=== PATIENT | female | born 1965 | race African-American/Black ===

== ENCOUNTER 2017-03-08 18:03 | Emergency (ER) | payer OTHER, MEDICAID ==
[2017-03-08 18:17] VITALS: BP 146/88; BMI 57.5
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
[2017-03-08] MEDS ORDERED: DECADRON INJ IM ONE (18:29)
[2017-03-08] MEDS ORDERED: BENADRYL INJ 50 MG VIAL IM ONE (18:29)
[2017-03-08] MEDS ORDERED: ADRENALINE CHL INJ IM ONE (18:29)
[2017-03-08] MEDS ORDERED: BENADRYL INJ 50 MG VIAL ONE (18:32)
[2017-03-08] MEDS ORDERED: ADRENALINE CHL INJ ONE (18:32)
[2017-03-08] MEDS ORDERED: DECADRON INJ ONE (18:33)
== END 2017-03-08 19:33 | disposition home or self-care (01) ==
LOC: ER 18:11
DX: T78.40XA Allergy, unspecified, initial encounter (principal); T78.1XXA Other adverse food reactions, not elsewhere classified, initial encounter; L29.8 Other pruritus
CPT/HCPCS: 96372; 99282; J0170; J1100; J1200

== ENCOUNTER → 2017-04-04 | Outpatient (CLI) | payer OTHER, MEDICAID ==
[2017-03-08 18:17] VITALS: BP 146/88
[~2017-04-04] MED LIST: NS 100 ML IV 100 ML IV ONE
--- NOTE | 2017-04-04 07:54 | RAD ---
HISTORY: Shortness of breath Study: Chest two-view Comparison: July 27, 2014 Findings: The trachea is midline. The cardiac silhouette is enlarged. No congestive heart failure is noted.. The lungs are clear without focal infiltrate or effusion. The bony thorax is unremarkable. IMPRESSION: 1. Mild cardiomegaly without congestive heart failure 2. Lungs clear Reported By:
--- NOTE | 2017-04-04 07:58 | RAD ---
HISTORY: Right knee pain Study: AP and lateral right knee Comparison: January 26, 2016 Findings: There is severe tricompartmental degenerative joint disease most prominently affecting the medial co mpartment. Once again noted is a large bony fragment which appears to be within the suprapatellar po uch. As suggested on the prior examination this could represent a patellar fracture fragment or disp laced bipartite patella. No lytic or blastic lesions are identified. Joint effusion cannot be exclud ed due to suboptimal positioning on the lateral view. IMPRESSION: Severe tricompartmental degenerative joint disease Large bony fragment in the suprapatellar pouch possibly emanating from the patella and due to an old fracture or displaced bipartite patella. Reported By:
[2017-04-04 08:15] LABS: BASOPHILS # (AUTO) 0.1 X10^3/uL (0.0-0.1); BASOPHILS % (AUTO) 0.8 % (0.2-1.0); EOSINOPHILS # (AUTO) 0.1 x10^3/uL (0.0-0.2); EOSINOPHILS % (AUTO) 1.4 % (0.9-2.9); HEMATOCRIT 35.7 % (36.0-47.0); HEMOGLOBIN 11.4 g/dL (12.0-16.0); LYMPHOCYTES # (AUTO) 3.6 X10^3/uL (1.3-2.9); LYMPHOCYTES % (AUTO) 37.1 % (21.0-51.0); MEAN CORPUSCULAR HEMOGLOBIN 24.4 pg (27.0-34.0); MEAN CORPUSCULAR HGB CONC 31.8 g/dL (33.0-35.0); MEAN CORPUSCULAR VOLUME 76.7 fL (80.0-100.0); MEAN PLATELET VOLUME 8.4 fL (7.4-11.0); MONOCYTES # (AUTO) 0.6 x10^3/uL (0.3-0.8); MONOCYTES % (AUTO) 6.7 % (0.0-13.0); NEUTROPHILS # (AUTO) 5.2 x10^3/uL (2.2-4.8); PLATELET COUNT 291 X10^3/uL (150.0-450.0); RED BLOOD COUNT 4.66 X10^6/uL (3.5-5.4); RED CELL DISTRIBUTION WIDTH 20.2 % (11.6-16.5); WHITE BLOOD COUNT 9.7 X10^3/uL (3.6-10.0)
[2017-04-04 08:29] LABS: ALANINE AMINOTRANSFERASE 18 Units/L (12-78); ALKALINE PHOSPHATASE 61 Units/L (46-116); ASPARTATE AMINO TRANSFERASE 13 Units/L (15-37); BLOOD UREA NITROGEN 8 mg/dL (7-18); CALCIUM 8.7 mg/dL (8.5-10.1); CARBON DIOXIDE 28.8 mmol/L (21-32); CHLORIDE 103 mmol/L (98-107); CHOL/HDL RATIO 2.7 (0.0-5.0); CHOLESTEROL 173 mg/dL (0-200); COR CA(FOR HYPOALB) 9.5 mg/dL (8.5-10.1); CREATININE 0.85 mg/dL (0.55-1.02); FREE T4 (FREE THYROXINE) 1.16 ng/dL (0.76-1.46); GLUCOSE 98 mg/dL (65-99); HDL CHOLESTEROL 63 mg/dL (40-60); SODIUM 140 mmol/L (136-145); TOTAL PROTEIN 7.9 g/dL (6.4-8.2); TRIGLYCERIDES 62 mg/dL (0-150); TSH (3RD GENERATION) 2.002 uIU/mL (0.358-3.74); eGFR BLACK RACES > 60 (>60); eGFR NON BLACK RACES > 60 (>60)
[2017-04-04 08:41] LABS: IRON 46 ug/dL (50-175); TRANSFERRIN 234 mg/dL (202-364)
[2017-04-04 08:57] LABS: D DIMER 1220 ng/mL (0-400)
[2017-04-04 09:01] LABS: ANISOCYTOSIS 1+; PLATELET MORPHOLOGY COMMENT NORMAL (NORMAL)
--- NOTE | 2017-04-04 12:54 | CT ---
HISTORY: Shortness of breath with elevated D-dimer. Study: CT chest with contrast Comparison: Chest x-ray dated same day. Technique: Multiple axial images of the chest were obtained from the thoracic inlet to the upper abd omen after the administration of IV contrast. Dose reduction techniques including Automated Exposur e Control (AEC) and adjustment of mA and kV were utilized. Findings: Study severely limited secondary to timing of bolus and inadequate opacification of the pulmonary ar teries. The mediastinum does not demonstrate significant pathological lymphadenopathy. There is no paracard ial effusion observed. The thoracic aorta is normal in its contour without evidence for aneurysmal dilatation. Limited evaluation of the pulmonary arteries. However, no pulmonary emboli are seen wit hin the main pulmonary arteries. Bibasilar scarring versus atelectasis. Evaluation of the lung parenchyma fails to demonstrate focal consolidation or effusion. No pulmonary nodule or mass can be identified. The bony thorax is unrem arkable in its appearance. The visualized portions of the upper abdomen are grossly unremarkable. IMPRESSION: 1. Severely limited study secondary to inadequate opacification of the pulmonary arteries. However, no obvious emboli are seen within the main pulmonary arteries. 2. Remaining exam is unremarkable. Reported By:
== END ==
LOC: RAD 07:21
PROVIDERS: ATTEND Specialist
DX: M25.561 Pain in right knee (principal); I10 Essential (primary) hypertension; R06.09 Other forms of dyspnea; R06.02 Shortness of breath; R53.83 Other fatigue; D64.9 Anemia, unspecified; R79.1 Abnormal coagulation profile; G47.33 Obstructive sleep apnea (adult) (pediatric); M17.11 Unilateral primary osteoarthritis, right knee
CPT/HCPCS: 36415; 71020; 71275; 73560; 80053; 80061; 82607; 82728; 82746; 83540; 84439; 84443; 84466; 85025; 85378; 93005; 93010; A4222

== ENCOUNTER 2017-04-07 14:40 | Observation (INO) | payer OTHER, MEDICAID ==
--- NOTE | 2017-04-07 15:38 | DR.H&P ---
H&P - History & Physical for Day of: H&P Date: 04/07/17 - Chief Complaint Chief Complaint: SOB, LOWER EXTREMITY SWELLING - Allergies Allergies/Adverse Reactions: Allergies Allergy/AdvReac Type Severity Reaction Status Date / Time MS Ibuprofen [From Motrin] Allergy Unknown Verified 06/08/14 14:54 MS Meloxicam [From Mobic] Allergy Unknown Verified 06/08/14 14:54 - Past Medical History Past Medical History: Anxiety, Arthritis, Asthma, Depression, Dyslipidemia, GERD , Hypertension Additional Medical History: FREQ UTI'S, HX OF ESOPHAGITIS W/DILATION OF ESOPHAGUS - Past Surgical History Surgical History: , Cholecystectomy, Joint Replacement - Family History Family Medical History: Diabetes Mellitus, Cancer, Hypertension - Social History Does patient currently use any type of tobacco product: No Have you used tobacco products in the last 12 months: No Type of Tobacco Use: None Does any household member use tobacco: No Alcohol Use: None Drug Use: None - Review of Systems Constitutional: Malaise Eyes: No Symptoms Reported ENT: No Symptoms Reported Respiratory: Shortness of Breath, SOB with Excertion Cardiovascular: Edema Gastrointestinal: No Symptoms Reported Genitourinary: No Symptoms Reported Musculoskeletal: Back Pain, Leg Pain Skin: No Symptoms Reported Neurological: No Symptoms Reported - Physical Exam Vital Signs: Temperature 97.7 F Pulse Rate [Left Brachial] 89 Respiratory Rate 20 Blood Pressure [Right Arm] 153/86 Blood Pressure [Left Arm] 174/90 Blood Pressure 146/88 O2 Sat by Pulse Oximetry 96 Oriented: Normal Eyes: Normal Ear: Normal Nose: Normal Throat: Normal Respiratory: Wheezes Throughout, RLL Diminished, LLL Diminished Cardiovascular: Edema (+3 EDEMA LLE, +2 RLE) Skin: Normal Musculoskeletal: Knee, Back:Thoracic, Back:Lumbar Psychiatric: Anxiety Speech Pattern: Clear, Appropriate - Assessment/Plan (1) SOB (shortness of breath) Status: Acute Plan: ADMIT, CT SCAN LUNGS. EKG, CARDIAC ENZYMES, BP AND LIPID CONTROL. ABG ON ADMISSION, RESP CONSULT. LOVENOX PROPHALAXIS, REPEAT AM LABS (2) Lower extremity edema Status: Acute Plan: VENOUS US R/O DVT (3) GERD (gastroesophageal reflux disease) Qualifiers: Esophagitis presence: E Status: Chronic Plan: PPI (4) Hypertension Qualifiers: Hypertension type: H Status: Chronic
--- NOTE | 2017-04-07 15:46 | RAD ---
HISTORY: Shortness of breath. Study: Portable chest. Comparison: CT chest and PET chest x-ray dated April 04, 2017. Findings: The trachea is midline. The cardiac silhouette is mildly enlarged but unchanged.. The lungs are cl ear without focal infiltrate or effusion. The bony thorax is unremarkable. IMPRESSION: 1. No acute cardiopulmonary disease. Reported By:
[2017-04-07 15:47] LABS: ABG BASE EXCESS 7.3 mmol/L (-2.0-2.0)
[2017-04-07 15:49] LABS: ABG ALLEN TEST POS; ABG HCO3 33.1 mmol/L (22-26)
[2017-04-07 16:03] LABS: BASOPHILS # (AUTO) 0.1 X10^3/uL (0.0-0.1); BASOPHILS % (AUTO) 1.3 % (0.2-1.0); EOSINOPHILS # (AUTO) 0.1 x10^3/uL (0.0-0.2); EOSINOPHILS % (AUTO) 1.3 % (0.9-2.9); HEMATOCRIT 34.6 % (36.0-47.0); HEMOGLOBIN 10.9 g/dL (12.0-16.0); LYMPHOCYTES % (AUTO) 31.9 % (21.0-51.0); MEAN CORPUSCULAR HEMOGLOBIN 24.2 pg (27.0-34.0); MEAN CORPUSCULAR HGB CONC 31.6 g/dL (33.0-35.0); MEAN CORPUSCULAR VOLUME 76.5 fL (80.0-100.0); MEAN PLATELET VOLUME 8.2 fL (7.4-11.0); MONOCYTES # (AUTO) 0.6 x10^3/uL (0.3-0.8); MONOCYTES % (AUTO) 6.7 % (0.0-13.0); NEUTROPHILS # (AUTO) 5.6 x10^3/uL (2.2-4.8); NEUTROPHILS % (AUTO) 58.8 % (42.0-75.0); PLATELET COUNT 339 X10^3/uL (150.0-450.0); RED BLOOD COUNT 4.52 X10^6/uL (3.5-5.4); WHITE BLOOD COUNT 9.4 X10^3/uL (3.6-10.0)
[2017-04-07 16:20] LABS: ANISOCYTOSIS 1+; HYPOCHROMASIA SLIGHT; PLATELET MORPHOLOGY COMMENT NORMAL (NORMAL); TARGET CELLS SLIGHT
[2017-04-07 16:22] LABS: BLOOD UREA NITROGEN 18 mg/dL (7-18); CALCIUM 8.6 mg/dL (8.5-10.1); CARBON DIOXIDE 29.9 mmol/L (21-32); CHLORIDE 101 mmol/L (98-107); CREATININE 0.94 mg/dL (0.55-1.02); GLUCOSE 98 mg/dL (65-99); SODIUM 138 mmol/L (136-145); TROPONIN I < 0.02 ng/mL (0-1.5); eGFR BLACK RACES > 60 (>60); eGFR NON BLACK RACES > 60 (>60)
[2017-04-07 16:27] LABS: ALANINE AMINOTRANSFERASE 17 Units/L (12-78); ALKALINE PHOSPHATASE 59 Units/L (46-116); ASPARTATE AMINO TRANSFERASE 11 Units/L (15-37); CKMB % 0.7 % (<4); COR CA(FOR HYPOALB) 9.4 mg/dL (8.5-10.1); CREATINE KINASE 135 Units/L (26-192); CREATINE KINASE MB < 1.0 ng/mL (0-4.0); MAGNESIUM 1.6 mg/dL (1.7-2.9); TOTAL PROTEIN 7.8 g/dL (6.4-8.2)
--- NOTE | 2017-04-07 16:40 | VAS ---
HISTORY: Dyspnea with left leg pain and edema Study: Left lower extremity venous Doppler Comparison: None TECHNIQUE: Multiple griffith scale as well as spectral and color flow Doppler images of the deep venous system were obtained of the left lower extremity. FINDINGS: The deep venous system of the left lower extremity was evaluated from the level of the common femora l vein through the popliteal vein. Normal color flow and augmentation can be observed. In addition , normal compression is seen throughout the deep venous system. IMPRESSION: Negative for DVT. Reported By:
[2017-04-07] MEDS: PROTONIX INJ 40 MG VIAL IVP SCH (16:53)
[2017-04-07] MEDS ORDERED: ULTRAM PO PRN (19:53)
[2017-04-07] MEDS ORDERED: PROVENTIL NEB TX 0.083% 2.5MG/ 3ML NEB PRN (20:01)
[2017-04-07 21:51] LABS: BILIRUBIN,URINE NEGATIVE (NEGATIVE); BLOOD/HEMOGLOBIN,URINE NEGATIVE (NEGATIVE); GLUCOSE, URINE NEGATIVE (NEGATIVE); KETONES,URINE NEGATIVE (NEGATIVE); LEUKOCYTE ESTERASE ,URINE 2+ (NEGATIVE); NITRITES,URINE NEGATIVE (NEGATIVE); PROTEIN,URINE NEGATIVE (NEGATIVE); UROBILINOGEN,URINE NORMAL (NORMAL)
[2017-04-07 22:02] LABS: APPEARANCE,URINE CLEAR (CLEAR); BACTERIA,URINE TRACE /HPF (NEGATIVE); COLOR,URINE YELLOW (YELLOW); RBC,URINE 0-1 /HPF (NEGATIVE); SQUAMOUS EPITHELIAL CELL,UR MODERATE /HPF (NEGATIVE)
[2017-04-08 05:04] LABS: BASOPHILS % (AUTO) 0.4 % (0.2-1.0); EOSINOPHILS # (AUTO) 0.1 x10^3/uL (0.0-0.2); EOSINOPHILS % (AUTO) 1.2 % (0.9-2.9); HEMATOCRIT 33.9 % (36.0-47.0); HEMOGLOBIN 10.8 g/dL (12.0-16.0); LYMPHOCYTES # (AUTO) 3.2 X10^3/uL (1.3-2.9); LYMPHOCYTES % (AUTO) 35.3 % (21.0-51.0); MEAN CORPUSCULAR HEMOGLOBIN 24.5 pg (27.0-34.0); MEAN CORPUSCULAR HGB CONC 31.8 g/dL (33.0-35.0); MEAN PLATELET VOLUME 8.6 fL (7.4-11.0); MONOCYTES # (AUTO) 0.7 x10^3/uL (0.3-0.8); NEUTROPHILS % (AUTO) 55.1 % (42.0-75.0); PLATELET COUNT 280 X10^3/uL (150.0-450.0); RED CELL DISTRIBUTION WIDTH 20.2 % (11.6-16.5); WHITE BLOOD COUNT 9.1 X10^3/uL (3.6-10.0)
[2017-04-08 05:14] LABS: ALANINE AMINOTRANSFERASE 17 Units/L (12-78); ALBUMIN 2.8 g/dL (3.4-5.0); ALKALINE PHOSPHATASE 57 Units/L (46-116); ASPARTATE AMINO TRANSFERASE 10 Units/L (15-37); BLOOD UREA NITROGEN 14 mg/dL (7-18); CALCIUM 8.5 mg/dL (8.5-10.1); CARBON DIOXIDE 30.6 mmol/L (21-32); CHLORIDE 102 mmol/L (98-107); COR CA(FOR HYPOALB) 9.5 mg/dL (8.5-10.1); CREATININE 0.73 mg/dL (0.55-1.02); GLUCOSE 84 mg/dL (65-99); SODIUM 140 mmol/L (136-145); TOTAL PROTEIN 7.3 g/dL (6.4-8.2); eGFR BLACK RACES > 60 (>60); eGFR NON BLACK RACES > 60 (>60)
[2017-04-08 05:58] LABS: ANISOCYTOSIS 1+; HYPOCHROMASIA SLIGHT; MICROCYTOSIS SLIGHT; PLATELET MORPHOLOGY COMMENT NORMAL (NORMAL)
[2017-04-08] MEDS: PROTONIX INJ 40 MG VIAL IVP SCH (08:52)
[2017-04-08] MEDS ORDERED: LOVENOX INJ 40 MG SYR SC SCH (09:00)
[2017-04-08] MEDS ORDERED: NS 100 ML IV 100 ML IV ONE (09:06)
--- NOTE | 2017-04-08 10:29 | CT ---
HISTORY: Shortness of breath Study: CTA chest for pulmonary embolus Comparison: April 04, 2017 Technique: Axial post-contrast images with coronal and sagittal reformats. 3 dimensional maximum int ensity projection images were obtained in evaluated. Dose reduction procedures were used with MA/kv adjusted for body size. Findings: The examination is indeterminate for acute pulmonary thromboembolic disease due to suboptimal bolus timing. Examination of the mediastinum demonstrated no evidence for mediastinal masses, lymphadenopa thy, or hilar lymphadenopathy. No pleural effusions are identified. No chest wall or axillary abnorm ality is identified. Those portions of the upper abdominal organs visualized were within normal limi ts to the limits of resolution in this patient. Examination of the lung [place] demonstrated no signi ficant nodules, alveolar infiltrates, masses, peribronchial thickening, or bronchiectasis. There is a focus of subsegmental atelectasis in the right lung base. IMPRESSION: Indeterminate examination for the determination of acute pulmonary thromboembolic disease due to sub optimal bolus timing. Lungs clear with the exception of a focus of subsegmental atelectasis in the right lung base. Reported By:
[2017-04-08 12:54] VITALS: BMI 65.2
[2017-04-08 16:38] VITALS: BP 131/85
== END 2017-04-08 17:00 | disposition home or self-care (01) ==
LOC: MED/SURG 14:40
PROVIDERS: ADMIT Internal Medicine; ATTEND Internal Medicine
DX: R06.02 Shortness of breath (principal); R60.0 Localized edema; E78.2 Mixed hyperlipidemia; K21.9 Gastro-esophageal reflux disease without esophagitis; I10 Essential (primary) hypertension; R79.1 Abnormal coagulation profile; M79.605 Pain in left leg; D64.89 Other specified anemias
CPT/HCPCS: 36415; 36600; 71010; 71275; 80053; 81001; 82550; 82553; 82803; 83735; 84484; 85025; 93005; 93010; 93971; 94760; A4222; C9113; G0378; J1650; J7613

== ENCOUNTER 2017-08-04 14:21 | Emergency (ER) | payer OTHER, MEDICAID ==
[2017-08-04 14:28] VITALS: BP 133/79; BMI 60.4
--- NOTE | 2017-08-04 15:15 | ED.ABDFE ---
HPI - Time seen Time seen: 15:15 - PCP Primary Care Physician: MELVA RUSH - Complaint Chief Complaint:: PT C/O PAIN SHE URINATES AND PAIN IN THE BOTTOM OF HER STOMACH ... THAT HAS BEEN GOING ON FOR 2 DAYS .. - Source History Provided: Patient - Mode of arrival Mode of Arrival: Ambulatory - Timing Onset of Chief Complaint: 08/02/17 PMH - PMH Past Medical History: Yes Past Medical History: Anxiety, Arthritis, Asthma, Depression, Dyslipidemia, GERD , Hypertension Past Surgical History: Yes Surgical History: , Cholecystectomy, Joint Replacement - Family History History of Family Medical Conditions: Yes Family Medical History: Diabetes Mellitus, Cancer, Hypertension - Social History Does patient currently use any type of tobacco product: No Have you used tobacco products in the last 12 months: No Type of Tobacco Use: None Does any household member use tobacco: No Alcohol Use: None Do you use any recreational Drugs:: No Lives With: Family Lives Where: Home - infectious screening In the last 2 months have you had wt loss of >10#?: NO Have you had fever, night sweats or hemotysis?: No Have you traveled outside the country in the last 6 months?: No Isolation: Standard ROS - Review of Systems Eyes: No Symptoms Reported ENTM: No Symptoms Reported Respiratoy: No Symptoms Reported Cardiovascular: No Symptoms Reported Gastrointestinal/Abdominal: No Symptoms Reported Genitourinary: No Symptoms Reported Neurological: No Symptoms Reported Musculoskeletal: No Symptoms Reported Integumentary: No Symptoms Reported Hematologic/Lymphatic: No Symptoms Reported Endocrine: No Symptoms Reported Psychiatric: No Symptoms Reported All Other Systems: Reviewed and Negative PE - Vital Signs Vitals: Temperature 97.9 F Pulse Rate 117 Respiratory Rate 18 Blood Pressure [Right Arm] 131/85 Blood Pressure [Left Arm] 174/90 Blood Pressure 133/79 O2 Sat by Pulse Oximetry 95 - General General Appearance: Alert, Anxious - Head Head Exam: Normal Inspection, Atraumatic - Eyes Eye exam: Normal Appearance, PERRL - ENT ENT Exam: Normal Exam - Neck Neck Exam: Normal Inspection, Full ROM - Chest Chest Inspection: Normal Inspection - Respiratory Respiratory Exam: Normal Lung Sounds Bilat Respiratory Exam: Bilateral Clear to Auscultation - Cardiovascular Cardiovascular Exam: Regular Rate, Normal Rhythm - Abdominal Exam Abdominal Exam: Normal Inspection, Normal Bowel Sounds Abdominal Tenderness: negative: RUQ, RLQ, LUQ, LLQ, Epigastrium, Suprapubic, Diffuse, Mild, Moderate, Severe, Other - Back Back Exam: Normal Inspection - Extremeties Extremities Exam: Normal Inspection, Full ROM - External Exam: Female: Normal External Exam : Speculum Exam (Female): Normal Speculum Exam : Bimanual Exam (female): Deferred - Neurologic Neurological Exam: Alert, Oriented X3, CN II-XII Intact - Psychiatric Psychiatric Exam: Normal Affect - Skin Skin Exam: Warm, Dry, Intact Course - Reevaluation 1st: Improved ROR - Labs Reviewed Laboratory Results Reviewed?: Yes (urine: nitrite +,Luek 3+, WBC TNTC) Laboratory: Specimen Type Clean catch urine 08/04/17 15:04 Urine Color Yellow (YELLOW) 08/04/17 15:04 Urine Appearance Cloudy (CLEAR) 08/04/17 15:04 Urine pH 6.0 (5.0 - 8.0) 08/04/17 15:04 Ur Specific [place] 1.020 (1.000-1.030) 08/04/17 15:04 Urine Protein 4+ (NEGATIVE) 08/04/17 15:04 Urine Glucose (UA) Negative (NEGATIVE) 08/04/17 15:04 Urine Ketones Negative (NEGATIVE) 08/04/17 15:04 Urine Occult Blood 5+ (NEGATIVE) 08/04/17 15:04 Urine Nitrite Positive (NEGATIVE) 08/04/17 15:04 Urine Bilirubin Negative (NEGATIVE) 08/04/17 15:04 Urine Urobilinogen Normal (NORMAL) 08/04/17 15:04 Ur Leukocyte Esterase 3+ (NEGATIVE) 08/04/17 15:04 Urine RBC 10-15 /HPF (NEGATIVE) 08/04/17 15:04 Urine WBC Tntc /HPF (NEGATIVE) 08/04/17 15:04 Ur Squamous Epith Cells Few /HPF (NEGATIVE) 08/04/17 15:04 Urine Bacteria 4+ /HPF (NEGATIVE) 08/04/17 15:04 Ur Culture Indicated? Yes/culture set up 08/04/17 15:04 - Diagnosis Discharge Problem: UTI (urinary tract infection) Qualifiers: Urinary tract infection type: urethritis Qualified Code(s): N34.2 - Other urethritis - Discharge Plan Condition: Stable - Follow ups/Referrals Follow ups/Referrals: NFD,None [Primary Care Provider] - 3 days - Instructions
[2017-08-04] MEDS ORDERED: DEMEROL INJ IM ONE (15:17)
[2017-08-04 15:18] LABS: BILIRUBIN,URINE NEGATIVE (NEGATIVE); BLOOD/HEMOGLOBIN,URINE 5+ (NEGATIVE); GLUCOSE, URINE NEGATIVE (NEGATIVE); KETONES,URINE NEGATIVE (NEGATIVE); LEUKOCYTE ESTERASE ,URINE 3+ (NEGATIVE); NITRITES,URINE POSITIVE (NEGATIVE); PROTEIN,URINE 4+ (NEGATIVE); UROBILINOGEN,URINE NORMAL (NORMAL)
[2017-08-04] MEDS ORDERED: DEMEROL INJ ONE (15:20)
[2017-08-04 15:31] LABS: APPEARANCE,URINE CLOUDY (CLEAR); BACTERIA,URINE 4+ /HPF (NEGATIVE); COLOR,URINE YELLOW (YELLOW); SQUAMOUS EPITHELIAL CELL,UR FEW /HPF (NEGATIVE)
[2017-08-04] MEDS ORDERED: ROCEPHIN VIAL 1 GM 1 GM in NS 50 ML IV + SPIKE MINIBAG* 50 ML IV SCH (15:45)
[2017-08-04] MEDS ORDERED: XYLOCAINE 1 % (PLAIN) ONE (15:48)
[2017-08-04] MEDS ORDERED: ROCEPHIN VIAL 1 GM ONE (15:48)
[2017-08-04] MEDS ORDERED: ROCEPHIN VIAL 1 GM 1 GM in NS 50 ML IV + SPIKE MINIBAG* 50 ML IV ONE (16:07)
[2017-08-04] MEDS ORDERED: ROCEPHIN VIAL 1 GM IM ONE (16:09)
== END 2017-08-04 16:10 | disposition home or self-care (01) ==
LOC: ER 14:43
DX: N34.2 Other urethritis (principal); B96.29 Other Escherichia coli [E. coli] as the cause of diseases classified elsewhere
CPT/HCPCS: 81001; 87086; 87088; 87186; 96372; 99282; J0696; J2001; J2175

== ENCOUNTER 2018-02-07 23:35 | Observation (INO) | payer OTHER, MEDICAID ==
[2018-02-07] MEDS ORDERED: DUONEB 0.5 MG/3 MG ONE (23:46)
[2018-02-07] MEDS ORDERED: DUONEB 0.5 MG/3 MG NEB ONE (23:53)
[2018-02-07] MEDS ORDERED: SOLU-Medrol 125 MG VIAL IVP ONE (23:53)
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
[2018-02-08] MEDS ORDERED: SOLU-Medrol 125 MG VIAL ONE (00:14)
[2018-02-08 00:20] LABS: BASOPHILS % (AUTO) 0.3 % (0.2-1.0); EOSINOPHILS # (AUTO) 0.1 x10^3/uL (0.0-0.2); EOSINOPHILS % (AUTO) 1.6 % (0.9-2.9); HEMATOCRIT 32.7 % (36.0-47.0); HEMOGLOBIN 10.4 g/dL (12.0-16.0); LYMPHOCYTES # (AUTO) 2.6 X10^3/uL (1.3-2.9); LYMPHOCYTES % (AUTO) 27.3 % (21.0-51.0); MEAN CORPUSCULAR HEMOGLOBIN 24.9 pg (27.0-34.0); MEAN CORPUSCULAR HGB CONC 31.7 g/dL (33.0-35.0); MEAN CORPUSCULAR VOLUME 78.4 fL (80.0-100.0); MEAN PLATELET VOLUME 7.7 fL (7.4-11.0); MONOCYTES # (AUTO) 0.5 x10^3/uL (0.3-0.8); MONOCYTES % (AUTO) 5.7 % (0.0-13.0); NEUTROPHILS # (AUTO) 6.2 x10^3/uL (2.2-4.8); NEUTROPHILS % (AUTO) 65.1 % (42.0-75.0); PLATELET COUNT 306 X10^3/uL (150.0-450.0); RED BLOOD COUNT 4.16 X10^6/uL (3.5-5.4); RED CELL DISTRIBUTION WIDTH 20.5 % (11.6-16.5); WHITE BLOOD COUNT 9.5 X10^3/uL (3.6-10.0)
[2018-02-08 00:23] LABS: ABG ALLEN TEST POS; ABG BASE EXCESS 4.3 mmol/L (-2.0-2.0); ABG HCO3 29.8 mmol/L (22-26); FRACTIONATED INSPIRED OXYGEN 21
[2018-02-08 00:32] LABS: BLOOD UREA NITROGEN 13 mg/dL (7-18); CALCIUM 8.2 mg/dL (8.5-10.1); CARBON DIOXIDE 30.5 mmol/L (21-32); CHLORIDE 104 mmol/L (98-107); COR NA(FOR HYPERGLY) 141 mmol/L (136-145); CREATININE 0.93 mg/dL (0.55-1.02); SODIUM 140 mmol/L (136-145); TROPONIN I < 0.02 ng/mL (0-1.5); eGFR BLACK RACES > 60 (>60); eGFR NON BLACK RACES > 60 (>60)
[2018-02-08 00:36] LABS: ALANINE AMINOTRANSFERASE 26 Units/L (12-78); ALBUMIN 2.9 g/dL (3.4-5.0); ALKALINE PHOSPHATASE 77 Units/L (46-116); ASPARTATE AMINO TRANSFERASE 13 Units/L (15-37); COR CA(FOR HYPOALB) 9.1 mg/dL (8.5-10.1); CREATINE KINASE 145 Units/L (26-192); CREATINE KINASE MB 1.5 ng/mL (0-4.0); MAGNESIUM 1.7 mg/dL (1.7-2.9); TOTAL PROTEIN 8.4 g/dL (6.4-8.2)
[2018-02-08 00:42] LABS: ANISOCYTOSIS 1+; HYPOCHROMASIA SLIGHT; PLATELET MORPHOLOGY COMMENT NORMAL (NORMAL)
[2018-02-08] MEDS ORDERED: CATAPRES TAB 0.2 MG PO ONE (01:20)
[2018-02-08] MEDS ORDERED: CATAPRES TAB 0.2 MG ONE (01:21)
--- NOTE | 2018-02-08 02:09 | RAD ---
Chest, AP portable Indication: Shortness of breath Comparison: 04/07/2017 Findings: Evaluation is limited by patient body habitus. There is increased reticular prominence thro ughout both lungs. No focal dense infiltrate or large pleural effusion is observed. The cardiac silho uette is unremarkable. Impression: Significantly limited study with suggestion of diffusely increased interstitial prominence, which cou ld reflect edema or atypical infection. correlation recommended. Consider two-view chest, if indicate d. Reported By:
[2018-02-08 02:38] LABS: CREATINE KINASE 155 Units/L (26-192); CREATINE KINASE MB 1.5 ng/mL (0-4.0); TROPONIN I < 0.02 ng/mL (0-1.5)
[2018-02-08] MEDS: DUONEB 0.5 MG/3 MG NEB SCH ×5 (04:00→21:14)
[2018-02-08 06:26] LABS: BASOPHILS % (AUTO) 0.3 % (0.2-1.0); HEMATOCRIT 33.7 % (36.0-47.0); HEMOGLOBIN 10.8 g/dL (12.0-16.0); MEAN CORPUSCULAR HGB CONC 32.1 g/dL (33.0-35.0); MEAN PLATELET VOLUME 8.5 fL (7.4-11.0); WHITE BLOOD COUNT 10.6 X10^3/uL (3.6-10.0)
[2018-02-08 06:34] LABS: LYMPHOCYTES # (AUTO) 0.9 X10^3/uL (1.3-2.9); LYMPHOCYTES % (AUTO) 8.6 % (21.0-51.0); MEAN CORPUSCULAR HEMOGLOBIN 24.8 pg (27.0-34.0); MEAN CORPUSCULAR VOLUME 77.3 fL (80.0-100.0); MONOCYTES # (AUTO) 0.2 x10^3/uL (0.3-0.8); MONOCYTES % (AUTO) 1.4 % (0.0-13.0); NEUTROPHILS # (AUTO) 9.5 x10^3/uL (2.2-4.8); NEUTROPHILS % (AUTO) 89.7 % (42.0-75.0); PLATELET COUNT 326 X10^3/uL (150.0-450.0); RED BLOOD COUNT 4.36 X10^6/uL (3.5-5.4); RED CELL DISTRIBUTION WIDTH 20.6 % (11.6-16.5)
[2018-02-08 06:39] LABS: BLOOD UREA NITROGEN 11 mg/dL (7-18); CALCIUM 8.5 mg/dL (8.5-10.1); CARBON DIOXIDE 27.8 mmol/L (21-32); CHLORIDE 102 mmol/L (98-107); COR NA(FOR HYPERGLY) 140 mmol/L (136-145); CREATININE 0.86 mg/dL (0.55-1.02); SODIUM 139 mmol/L (136-145); eGFR BLACK RACES > 60 (>60); eGFR NON BLACK RACES > 60 (>60)
[2018-02-08 06:59] LABS: ANISOCYTOSIS 1+; GIANT PLATELET FEW; PLATELET MORPHOLOGY COMMENT NORMAL (NORMAL)
[2018-02-08] MEDS ORDERED: PATIENT'S HOME MEDICATION (Amlodipine Besylate [Amlodipine Besylate] 10 MG) PO SCH (09:00)
[2018-02-08] MEDS ORDERED: PATIENT'S HOME MEDICATION (Potassium Chloride [Potassium Chloride] 10 MEQ) PO SCH (09:00)
[2018-02-08] MEDS ORDERED: NS 250 ML IV 250 ML IV ONE (09:47)
[2018-02-08] MEDS: ZITHROMAX INJ 500 MG VIAL 250 MG in NS 250 ML IV 250 ML IV SCH (09:53)
[2018-02-08] MEDS: HYZAAR 50/12.5 MG PO SCH (09:54)
[2018-02-08] MEDS: NORVASC TAB 10 MG PO SCH (09:54)
[2018-02-08] MEDS: MICRO K EXTEN CAP 10 MEQ PO SCH (09:55)
[2018-02-08] MEDS: ZOLOFT PO SCH (09:55)
[2018-02-08 10:04] LABS: CKMB % 1.1 % (<4); CREATINE KINASE 142 Units/L (26-192); CREATINE KINASE MB 1.5 ng/mL (0-4.0); TROPONIN I < 0.02 ng/mL (0-1.5)
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
[2018-02-08] MEDS: NORCO 10/325 TAB PO PRN ×2 (14:03→23:07)
[2018-02-08] MEDS: ASPIRIN PO SCH (14:03)
[2018-02-08] MEDS: LOVENOX INJ 40 MG SYR SC SCH (14:04)
[2018-02-08] MEDS: SINEquan PO SCH ×2 (14:07→21:38)
[2018-02-08 14:57] LABS: CKMB % 1.1 % (<4); CREATINE KINASE 132 Units/L (26-192); CREATINE KINASE MB 1.4 ng/mL (0-4.0); TROPONIN I < 0.02 ng/mL (0-1.5)
[2018-02-08] MEDS: LASIX IVP SCH (20:24)
[2018-02-09] MEDS: DUONEB 0.5 MG/3 MG NEB SCH ×6 (00:59→21:15)
[2018-02-09] MEDS: NORCO 10/325 TAB PO PRN (04:49)
[2018-02-09 06:01] VITALS: BMI 67.3
[2018-02-09 06:15] LABS: BASOPHILS % (AUTO) 0.3 % (0.2-1.0); EOSINOPHILS % (AUTO) 0.2 % (0.9-2.9); HEMATOCRIT 30.8 % (36.0-47.0); HEMOGLOBIN 9.8 g/dL (12.0-16.0); LYMPHOCYTES # (AUTO) 2.4 X10^3/uL (1.3-2.9); LYMPHOCYTES % (AUTO) 21.6 % (21.0-51.0); MEAN CORPUSCULAR HEMOGLOBIN 24.5 pg (27.0-34.0); MEAN CORPUSCULAR HGB CONC 31.8 g/dL (33.0-35.0); MEAN PLATELET VOLUME 8.2 fL (7.4-11.0); MONOCYTES # (AUTO) 0.8 x10^3/uL (0.3-0.8); NEUTROPHILS % (AUTO) 70.9 % (42.0-75.0); PLATELET COUNT 310 X10^3/uL (150.0-450.0); RED CELL DISTRIBUTION WIDTH 20.3 % (11.6-16.5); WHITE BLOOD COUNT 11.2 X10^3/uL (3.6-10.0)
[2018-02-09 06:34] LABS: PLATELET MORPHOLOGY COMMENT NORMAL (NORMAL)
--- NOTE | 2018-02-09 06:34 | RAD ---
HISTORY: Shortness of breath Study: Chest AP portable Comparison: 02/08/2018 Findings: The heart is upper limits normal in size. No definite acute alveolar infiltrates or pleural effusions are identified. The interstitium is no longer prominent. The bony thorax is unremarkable. IMPRESSION: No significant abnormality identified Reported By:
[2018-02-09 06:35] LABS: ANISOCYTOSIS 1+; HYPOCHROMASIA SLIGHT
[2018-02-09 06:38] LABS: ALANINE AMINOTRANSFERASE 35 Units/L (12-78); ALKALINE PHOSPHATASE 73 Units/L (46-116); ASPARTATE AMINO TRANSFERASE 10 Units/L (15-37); BLOOD UREA NITROGEN 13 mg/dL (7-18); CALCIUM 8.3 mg/dL (8.5-10.1); CARBON DIOXIDE 30.5 mmol/L (21-32); CHLORIDE 101 mmol/L (98-107); COR CA(FOR HYPOALB) 9.1 mg/dL (8.5-10.1); COR NA(FOR HYPERGLY) 139 mmol/L (136-145); CREATININE 0.88 mg/dL (0.55-1.02); SODIUM 139 mmol/L (136-145); TOTAL PROTEIN 7.7 g/dL (6.4-8.2); eGFR BLACK RACES > 60 (>60); eGFR NON BLACK RACES > 60 (>60)
--- NOTE | 2018-02-09 08:35 | VAS ---
VENOUS ULTRASOUND DOPPLER EXAMINATION OF THE BILATERAL LOWER EXTREMITIES HISTORY: Bilateral pain and edema Comparison: None TECHNIQUE: Multiple griffith scale and color flow Doppler images of the deep venous system were obtained of the right and left lower extremity. FINDINGS: The deep venous system of the right and left lower extremities were evaluated from the level of the c ommon femoral vein through the popliteal vein. Normal color flow and augmentation can be observed. In addition, normal compression is seen throughout the deep venous system. IMPRESSION: 1. Negative for DVT. Reported By:
[2018-02-09] MEDS: LASIX IVP SCH (09:19)
[2018-02-09] MEDS: ZITHROMAX INJ 500 MG VIAL 250 MG in NS 250 ML IV 250 ML IV SCH (09:20)
[2018-02-09] MEDS: ASPIRIN PO SCH (09:21)
[2018-02-09] MEDS: ZOLOFT PO SCH (09:21)
[2018-02-09] MEDS: MICRO K EXTEN CAP 10 MEQ PO SCH (09:21)
[2018-02-09] MEDS: NORVASC TAB 10 MG PO SCH (09:21)
[2018-02-09] MEDS: HYZAAR 50/12.5 MG PO SCH (09:21)
[2018-02-09] MEDS: LOVENOX INJ 40 MG SYR SC SCH (09:22)
[2018-02-09] MEDS: SOLU-Medrol 40 MG VIAL IVP SCH ×2 (09:32→17:27)
[2018-02-09] MEDS: SINEquan PO SCH (12:03)
[2018-02-10] MEDS: DUONEB 0.5 MG/3 MG NEB SCH ×4 (01:10→14:53)
[2018-02-10] MEDS: SOLU-Medrol 40 MG VIAL IVP SCH ×2 (02:15→09:45)
[2018-02-10] MEDS: SINEquan PO SCH ×2 (02:33→08:57)
[2018-02-10 06:12] LABS: BASOPHILS % (AUTO) 0.3 % (0.2-1.0); HEMATOCRIT 34.3 % (36.0-47.0); HEMOGLOBIN 10.9 g/dL (12.0-16.0); LYMPHOCYTES # (AUTO) 1.2 X10^3/uL (1.3-2.9); LYMPHOCYTES % (AUTO) 10.8 % (21.0-51.0); MEAN CORPUSCULAR HEMOGLOBIN 24.4 pg (27.0-34.0); MEAN CORPUSCULAR HGB CONC 31.6 g/dL (33.0-35.0); MEAN CORPUSCULAR VOLUME 77.1 fL (80.0-100.0); MEAN PLATELET VOLUME 8.1 fL (7.4-11.0); MONOCYTES # (AUTO) 0.2 x10^3/uL (0.3-0.8); NEUTROPHILS # (AUTO) 10.1 x10^3/uL (2.2-4.8); NEUTROPHILS % (AUTO) 86.9 % (42.0-75.0); PLATELET COUNT 336 X10^3/uL (150.0-450.0); RED BLOOD COUNT 4.45 X10^6/uL (3.5-5.4); RED CELL DISTRIBUTION WIDTH 20.3 % (11.6-16.5); WHITE BLOOD COUNT 11.6 X10^3/uL (3.6-10.0)
[2018-02-10 06:20] LABS: ALANINE AMINOTRANSFERASE 23 Units/L (12-78); ALBUMIN 3.3 g/dL (3.4-5.0); ALKALINE PHOSPHATASE 80 Units/L (46-116); ASPARTATE AMINO TRANSFERASE 8 Units/L (15-37); BLOOD UREA NITROGEN 15 mg/dL (7-18); CALCIUM 8.2 mg/dL (8.5-10.1); CARBON DIOXIDE 32.4 mmol/L (21-32); CHLORIDE 98 mmol/L (98-107); COR CA(FOR HYPOALB) 8.8 mg/dL (8.5-10.1); COR NA(FOR HYPERGLY) 138 mmol/L (136-145); CREATININE 0.75 mg/dL (0.55-1.02); SODIUM 137 mmol/L (136-145); TOTAL PROTEIN 8.6 g/dL (6.4-8.2); eGFR BLACK RACES > 60 (>60); eGFR NON BLACK RACES > 60 (>60)
[2018-02-10 06:40] LABS: ANISOCYTOSIS SLIGHT; PLATELET MORPHOLOGY COMMENT NORMAL (NORMAL)
[2018-02-10] MEDS: ASPIRIN PO SCH (08:49)
[2018-02-10] MEDS: NORVASC TAB 10 MG PO SCH (08:49)
[2018-02-10] MEDS: MICRO K EXTEN CAP 10 MEQ PO SCH (08:49)
[2018-02-10] MEDS: HYZAAR 50/12.5 MG PO SCH (08:49)
[2018-02-10] MEDS: ZITHROMAX INJ 500 MG VIAL 250 MG in NS 250 ML IV 250 ML IV SCH (08:50)
[2018-02-10] MEDS: LOVENOX INJ 40 MG SYR SC SCH (08:50)
[2018-02-10] MEDS: ZOLOFT PO SCH (08:50)
[2018-02-10] MEDS ORDERED: TUSSIONEX PENNKINETIC SUSP PO ONE (13:39)
[2018-02-10] MEDS ORDERED: CHLORASEPTIC SPRAY MT PRN (13:40)
[2018-02-10 14:05] VITALS: BP 148/76
== END 2018-02-10 14:55 | disposition home health service (06) ==
LOC: ER 23:35 → MED/SURG 02-08 01:57
PROVIDERS: ADMIT Internal Medicine; ATTEND Internal Medicine
DX: J44.1 Chronic obstructive pulmonary disease with (acute) exacerbation (principal); I50.9 Heart failure, unspecified; E66.9 Obesity, unspecified; I10 Essential (primary) hypertension; G47.33 Obstructive sleep apnea (adult) (pediatric); M19.90 Unspecified osteoarthritis, unspecified site; M79.606 Pain in leg, unspecified
CPT/HCPCS: 36415; 36600; 71045; 80048; 80053; 82550; 82553; 82803; 83735; 83880; 84484; 85025; 85378; 85610; 85730; 93005; 93010; 93970; 94640; 94760; 96365; 96374; 97535; 99283; 99284; A4216; A4222; A4618; A7030; G0378; J0456; J1650; J1940; J2920; J2930; J7620

== ENCOUNTER 2018-07-31 10:53 | Inpatient (IN) ==
[2018-07-31 13:55] VITALS: BMI 65.9
[2018-07-31] MEDS ORDERED: AMBIEN PO PRN (14:34)
[2018-07-31] MEDS ORDERED: LEVSIN/MAALOX/LIDOC VISC PO PRN (14:34)
--- NOTE | 2018-07-31 14:53 | DR.H&P ---
H&P - History & Physical for Day of: H&P Date: 07/31/18 - Chief Complaint Chief Complaint: SOB - History of Present Illness History of Present Illness: 52 BF DIRECT ADMIT FROM DR MOREIRA WITH CO SOB, INCREASED WHEEZING AND RIGHT SIDE CHEST PAIN. PT HAS HX OF COPD AND HAS BEEN USING NEB TREATMENTS WITHOUT IMPROVEMENT. PT SEEN DR GARCIAS FOR STRESS TEST 2 WEEKS AGO, SET UP FOR HEART CATH AT [facility]. PT CO PAIN TO RIGHT CHEST ON AND OFF FOR SEVERAL WEEKS WAS CONCERNED WITH WAS HER "HEART". PT HAD DIFFUSE EXP WHEEZING AND O2 SAT 92%. PT CO RLE PAIN AND INCREASED SWELLING. PT HAS HX OF SEVERE KNEE OA. PT HAS PMH OF HTN, COPD, CARDIOMEGALY, SLEEP APNEA, OA. PT ADMITTED FOR TREATMENT OF COPD EXACERBATION, SOB AND CARDIAC MONITORING. - Past Medical History Past Medical History: Coronary Artery Disease, Hypertension, Dyslipidemia, Depression, Anxiety, COPD, Asthma, GERD, Arthritis Additional Medical History: FREQ UTI'S, HX OF ESOPHAGITIS W/DILATION OF ESOPHAGUS - Past Surgical History Surgical History: Cholecystectomy, , Ortho Surgery - Family History Family Medical History: Diabetes Mellitus, Cancer, Hypertension - Social History Does patient currently use any type of tobacco product: No Have you used tobacco products in the last 12 months: No Type of Tobacco Use: None Does any household member use tobacco: No Alcohol Use: None Drug Use: None - Medications Home Medications: ibuprofen [From Motrin] Allergy (Verified 08/04/17 14:23) meloxicam Allergy (Verified 08/04/17 14:23) - Review of Systems Constitutional: Chills, Weakness, Malaise Eyes: No Symptoms Reported ENT: No Symptoms Reported Respiratory: Cough, Shortness of Breath, SOB with Excertion, Wheezing Cardiovascular: Chest Pain (RIGHT SIDE CHEST PAIN), Edema Gastrointestinal: Abdominal Pain (MILD RUQ) Genitourinary: No Symptoms Reported Musculoskeletal: Back Pain, Leg Pain Skin: No Symptoms Reported Neurological: No Symptoms Reported - Physical Exam Vital Signs: Temperature 97.7 F Pulse Rate [Left Brachial] 97 Respiratory Rate 24 Blood Pressure [Right Calf] 162/96 Blood Pressure [Right Arm] 148/76 Blood Pressure [Left Arm] 139/72 Blood Pressure 162/96 O2 Sat by Pulse Oximetry 91 Oriented: Normal Ear: Normal Nose: Normal Throat: Dry Respiratory: Wheezes Throughout, RLL Diminished, LLL Diminished Cardiovascular: Normal, Edema (BILATERAL TRACE LE EDEMA) Auscultation: Bowel Sounds: Normal Palpation: Normal Tenderness: RUQ, Mild. negative: Rebound, Guarding, Rigidity Skin: Decreased Turgur Musculoskeletal: Right, Left, Knee, Tender, Crepitance Psychiatric: Anxiety Affect: Anxious Speech Pattern: Clear, Appropriate - Assessment/Plan (1) COPD exacerbation Status: Acute Plan: ADMIT, RESP CONSULT. ABG ON ADMISSION, SUPPLEMENTAL O2. PPI, CXR, BLOOD AND SPUTUM CULTURE. IV LEVAQUIN, IV SOLU MEDROL. JET NEBS. BP MONITORING, VERIFY HOME MEDS, RESUME BP MEDICATION. LE UE R/O DVT (2) Chest pain Qualifiers: Chest pain type: precordial pain Qualified Code(s): R07.2 - Precordial pain Status: Acute (3) SOB (shortness of breath) Status: Acute (4) Lower extremity edema Status: Acute (5) GERD (gastroesophageal reflux disease) Status: Chronic (6) Hypertension Status: Chronic - Allergies Allergies/Adverse Reactions: Allergies Allergy/AdvReac Type Severity Reaction Status Date / Time ibuprofen [From Motrin] Allergy Verified 08/04/17 14:23 meloxicam Allergy Verified 08/04/17 14:23
--- NOTE | 2018-07-31 14:58 | RAD ---
HISTORY: Shortness of breath, chest pain Study: Single-view chest Comparison: 07/17/2018 Findings: The trachea is midline. The cardiac silhouette is unremarkable. There is no acute infiltrate, consoli dation, or pleural effusion. The bony structures are grossly intact. IMPRESSION: 1. No acute cardiopulmonary process evident Reported By:
[2018-07-31] MEDS ORDERED: SALINE 3% 15 ML NEB TX NEB ONE (15:06)
[2018-07-31 15:10] LABS: ABG BASE EXCESS 8.2 mmol/L (-2.0-2.0)
[2018-07-31 15:11] LABS: ABG HCO3 33.9 mmol/L (22-26); FRACTIONATED INSPIRED OXYGEN 21
[2018-07-31 15:13] LABS: BASOPHILS # (AUTO) 0.1 X10^3/uL (0.0-0.1); EOSINOPHILS # (AUTO) 0.1 x10^3/uL (0.0-0.2); EOSINOPHILS % (AUTO) 1.5 % (0.9-2.9); HEMATOCRIT 37.1 % (36.0-47.0); HEMOGLOBIN 11.7 g/dL (12.0-16.0); LYMPHOCYTES # (AUTO) 2.8 X10^3/uL (1.3-2.9); LYMPHOCYTES % (AUTO) 38.3 % (21.0-51.0); MEAN CORPUSCULAR HEMOGLOBIN 24.7 pg (27.0-34.0); MEAN CORPUSCULAR HGB CONC 31.7 g/dL (33.0-35.0); MEAN CORPUSCULAR VOLUME 77.8 fL (80.0-100.0); MEAN PLATELET VOLUME 8.4 fL (7.4-11.0); MONOCYTES # (AUTO) 0.5 x10^3/uL (0.3-0.8); MONOCYTES % (AUTO) 7.3 % (0.0-13.0); NEUTROPHILS # (AUTO) 3.8 x10^3/uL (2.2-4.8); NEUTROPHILS % (AUTO) 51.9 % (42.0-75.0); PLATELET COUNT 379 X10^3/uL (150.0-450.0); RED BLOOD COUNT 4.76 X10^6/uL (3.5-5.4); RED CELL DISTRIBUTION WIDTH 20.1 % (11.6-16.5); WHITE BLOOD COUNT 7.3 X10^3/uL (3.6-10.0)
[2018-07-31] MEDS: PULMICORT NEB TX 0.5 MG NEB SCH ×2 (15:13→22:15)
[2018-07-31 15:31] LABS: BLOOD UREA NITROGEN 11 mg/dL (7-18); CALCIUM 8.4 mg/dL (8.5-10.1); CARBON DIOXIDE 31.6 mmol/L (21-32); CHLORIDE 100 mmol/L (98-107); CREATININE 0.89 mg/dL (0.55-1.02); SODIUM 138 mmol/L (136-145); TROPONIN I < 0.02 ng/mL (0-1.5); eGFR NON BLACK RACES > 60 (>60)
[2018-07-31 15:35] LABS: ALANINE AMINOTRANSFERASE 17 Units/L (12-78); ALKALINE PHOSPHATASE 81 Units/L (46-116); ASPARTATE AMINO TRANSFERASE 11 Units/L (15-37); COR CA(FOR HYPOALB) 9.2 mg/dL (8.5-10.1); CREATINE KINASE 123 Units/L (26-192); CREATINE KINASE MB < 1.0 ng/mL (0-4.0); TOTAL PROTEIN 7.9 g/dL (6.4-8.2)
[2018-07-31 15:37] LABS: CKMB % 0.8 % (<4)
[2018-07-31 15:38] LABS: ANISOCYTOSIS 1+; HYPOCHROMASIA SLIGHT; PLATELET MORPHOLOGY COMMENT NORMAL (NORMAL)
[2018-07-31] MEDS ORDERED: PROVENTIL NEB TX 0.083% 2.5MG/ 3ML NEB PRN (15:53)
[2018-07-31] MEDS ORDERED: PROVENTIL NEB TX 0.083% 2.5MG/ 3ML ONE (16:04)
[2018-07-31] MEDS: PROVENTIL NEB TX 0.083% 2.5MG/ 3ML NEB SCH ×2 (16:10→22:15)
[2018-07-31] MEDS: LOVENOX INJ 40 MG SYR SC SCH (16:13)
[2018-07-31] MEDS: LEVAQUIN PREMIX IV 750 MG 750 MG/150 ML BAG IV SCH (16:13)
[2018-07-31] MEDS: PROTONIX INJ 40 MG VIAL IVP SCH (16:14)
[2018-07-31] MEDS: NEURONTIN CAP 300 MG PO SCH ×2 (16:14→21:00)
[2018-07-31] MEDS: SOLU-Medrol 40 MG VIAL IVP SCH ×2 (16:14→21:02)
[2018-07-31] MEDS: ROBITUSSIN DM PO SCH ×2 (17:26→20:24)
[2018-08-01] MEDS: NORCO 10/325 TAB PO PRN (00:35)
[2018-08-01 05:58] LABS: BASOPHILS % (AUTO) 0.4 % (0.2-1.0); HEMATOCRIT 39.7 % (36.0-47.0); HEMOGLOBIN 12.6 g/dL (12.0-16.0); LYMPHOCYTES # (AUTO) 1.3 X10^3/uL (1.3-2.9); MEAN CORPUSCULAR HEMOGLOBIN 24.8 pg (27.0-34.0); MEAN CORPUSCULAR HGB CONC 31.8 g/dL (33.0-35.0); MEAN CORPUSCULAR VOLUME 78.1 fL (80.0-100.0); MEAN PLATELET VOLUME 8.8 fL (7.4-11.0); MONOCYTES # (AUTO) 0.1 x10^3/uL (0.3-0.8); MONOCYTES % (AUTO) 1.4 % (0.0-13.0); NEUTROPHILS # (AUTO) 6.8 x10^3/uL (2.2-4.8); NEUTROPHILS % (AUTO) 82.2 % (42.0-75.0); PLATELET COUNT 372 X10^3/uL (150.0-450.0); RED BLOOD COUNT 5.09 X10^6/uL (3.5-5.4); RED CELL DISTRIBUTION WIDTH 20.4 % (11.6-16.5); WHITE BLOOD COUNT 8.2 X10^3/uL (3.6-10.0)
[2018-08-01] MEDS: SOLU-Medrol 40 MG VIAL IVP SCH (05:58)
[2018-08-01] MEDS: NEURONTIN CAP 300 MG PO SCH ×3 (05:58→22:02)
[2018-08-01 06:23] LABS: ALANINE AMINOTRANSFERASE 17 Units/L (12-78); ALBUMIN 3.1 g/dL (3.4-5.0); ALKALINE PHOSPHATASE 88 Units/L (46-116); BLOOD UREA NITROGEN 11 mg/dL (7-18); CALCIUM 8.6 mg/dL (8.5-10.1); CARBON DIOXIDE 28.7 mmol/L (21-32); CHLORIDE 100 mmol/L (98-107); COR CA(FOR HYPOALB) 9.3 mg/dL (8.5-10.1); COR NA(FOR HYPERGLY) 137 mmol/L (136-145); CREATININE 0.86 mg/dL (0.55-1.02); SODIUM 135 mmol/L (136-145); TOTAL PROTEIN 8.6 g/dL (6.4-8.2); eGFR NON BLACK RACES > 60 (>60)
[2018-08-01 06:30] LABS: ASPARTATE AMINO TRANSFERASE 13 Units/L (15-37)
[2018-08-01 06:38] LABS: ANISOCYTOSIS 1+; HYPOCHROMASIA SLIGHT; PLATELET MORPHOLOGY COMMENT NORMAL (NORMAL)
[2018-08-01] MEDS: LEVAQUIN PREMIX IV 750 MG 750 MG/150 ML BAG IV SCH (09:00)
[2018-08-01] MEDS: PROTONIX INJ 40 MG VIAL IVP SCH (09:00)
[2018-08-01] MEDS: LOVENOX INJ 40 MG SYR SC SCH (09:00)
[2018-08-01] MEDS: ROBITUSSIN DM PO SCH ×4 (09:00→21:30)
[2018-08-01] MEDS: PROVENTIL NEB TX 0.083% 2.5MG/ 3ML NEB SCH ×4 (09:39→22:51)
[2018-08-01] MEDS: PULMICORT NEB TX 0.5 MG NEB SCH ×2 (09:40→21:00)
[2018-08-01] MEDS ORDERED: HYDROCHLOROTHIAZIDE PO SCH (11:45)
[2018-08-01] MEDS ORDERED: [UNRECOGNIZED DRUG - OTHER] PO SCH (11:45)
[2018-08-01] MEDS ORDERED: LOSARTAN PO SCH (11:45)
--- NOTE | 2018-08-01 11:45 | PCM.PROG ---
Progress Note - Progress Note for Day of Date of Exam: 08/01/18 - Subjective Subjective: 52 BF ADMITTED ON 07/31 WITH SOB, COPD EXACERBATION AND CHEST PAIN. PT STATES CP RESOLVED THIS AM, REVIEWED EKG AND CE WITH PT. PT FEELS "LITTLE BETTER THIS MORNING" CONTINUES WITH DIFFUSE EXP WHEEZES. PT ELEVATED BP, WILL RESUME NORVASC AND LOSARTAN. PT STATES SHES NOT TIGHT IN HER CHEST, BREATHING EASIER THAN ADMISSION. - Past Medical Family Social History Past Med/Fam/Surg Hx: No changes since H&P Allergies: Allergies ibuprofen [From Motrin] Allergy (Verified 08/04/17 14:23) meloxicam Allergy (Verified 08/04/17 14:23) - Review of Systems ROS: No change since H&P - Vital Signs and I&O's Vital Signs: Temperature 97.6 F Pulse Rate [Left Brachial] 86 Pulse Rate 87 Respiratory Rate 20 Blood Pressure [Right Calf] 162/96 Blood Pressure [Right Arm] 168/91 Blood Pressure [Left Arm] 92/51 Blood Pressure 162/96 O2 Sat by Pulse Oximetry 96 Intake and Output: Intake & Output 07/29/18 07/30/18 07/31/18 08/01/18 11:59 11:59 11:59 11:59 Intake Total 1090 / 1090 Balance 1090 / 1090 - Physical Exam Oriented: Normal Eyes: Normal Ear: Normal Nose: Normal Throat: Dry Respiratory: Diminished, Wheezes Cardiovascular: Normal, Edema (BILATERAL TRACE LE EDEMA) Auscultation: Bowel Sounds: Normal Tenderness: RUQ, Mild. negative: Rebound, Guarding, Rigidity Skin: Decreased Turgur Musculoskeletal: Right, Left, Knee, Tender, Crepitance Psychiatric: Anxiety Affect: Anxious Speech Pattern: Clear, Appropriate - Laboratory and Diagnostics Result Diagrams: 08/01/18 05:05 08/01/18 05:05 Labs: 07/31/18 16:13 Sputum - Expectorated Sputum Sputum Culture - Final 07/31/18 16:13 Sputum - Expectorated Sputum - Final Laboratory WBC 8.2 X10^3/uL (3.6-10.0) 08/01/18 05:05 RBC 5.09 X10^6/uL (3.5-5.4) 08/01/18 05:05 Hgb 12.6 g/dL (12.0-16.0) 08/01/18 05:05 Hct 39.7 % (36.0-47.0) 08/01/18 05:05 MCV 78.1 fL (80.0-100.0) L 08/01/18 05:05 MCH 24.8 pg (27.0-34.0) L 08/01/18 05:05 MCHC 31.8 g/dL (33.0-35.0) L 08/01/18 05:05 RDW 20.4 % (11.6-16.5) H 08/01/18 05:05 Plt Count 372 X10^3/uL (150.0-450.0) 08/01/18 05:05 Plt Count Comment Adequate (ADEQUATE) 08/01/18 05:05 MPV 8.8 fL (7.4-11.0) 08/01/18 05:05 Neut % (Auto) 82.2 % (42.0-75.0) H 08/01/18 05:05 Lymph % (Auto) 16.0 % (21.0-51.0) L 08/01/18 05:05 [place] % (Auto) 1.4 % (0.0-13.0) 08/01/18 05:05 Eos % (Auto) 0.0 % (0.9-2.9) L 08/01/18 05:05 Baso % (Auto) 0.4 % (0.2-1.0) 08/01/18 05:05 Neut # (Auto) 6.8 x10^3/uL (2.2-4.8) H 08/01/18 05:05 Lymph # (Auto) 1.3 X10^3/uL (1.3-2.9) 08/01/18 05:05 [place] # (Auto) 0.1 x10^3/uL (0.3-0.8) L 08/01/18 05:05 Eos # (Auto) 0.0 x10^3/uL (0.0-0.2) 08/01/18 05:05 Baso # (Auto) 0.0 X10^3/uL (0.0-0.1) 08/01/18 05:05 Absolute Nucleated RBC 0.0 /100WBC 08/01/18 05:05 Plt Morphology Comment Normal (NORMAL) 08/01/18 05:05 RBC Morphology Abnormal (NORMAL) A 08/01/18 05:05 Hypochromasia Slight A 08/01/18 05:05 Anisocytosis 1+ A 08/01/18 05:05 Sample Site Lbr 07/31/18 14:53 ABG pH 7.430 (7.35-7.45) 07/31/18 14:53 ABG pCO2 51.0 mmHg (35.0-45.0) H* 07/31/18 14:53 ABG pO2 65.0 mmHg (80.0-100.0) L 07/31/18 14:53 ABG HCO3 33.9 mmol/L (22-26) H* 07/31/18 14:53 ABG O2 Saturation 93.0 % (90-100) 07/31/18 14:53 ABG Base Excess 8.2 mmol/L (-2.0-2.0) H 07/31/18 14:53 Adam Test N/a 07/31/18 14:53 A-a Gradient 21.0 mmHg 07/31/18 14:53 FiO2 21 07/31/18 14:53 Blood Gas Comments Pt adonay wel elj 07/31/18 14:53 Sodium 135 mmol/L (136-145) L 08/01/18 05:05 Corrected Sodium 137 mmol/L (136-145) 08/01/18 05:05 Potassium 4.5 mmol/L (3.5-5.1) 08/01/18 05:05 Chloride 100 mmol/L (98-107) 08/01/18 05:05 Carbon Dioxide 28.7 mmol/L (21-32) 08/01/18 05:05 BUN 11 mg/dL (7-18) 08/01/18 05:05 Creatinine 0.86 mg/dL (0.55-1.02) 08/01/18 05:05 Est GFR (MDRD) Af Amer > 60 (>60) 08/01/18 05:05 Est GFR (MDRD) Non-Af > 60 (>60) 08/01/18 05:05 Glucose 163 mg/dL (65-99) H 08/01/18 05:05 Calcium 8.6 mg/dL (8.5-10.1) 08/01/18 05:05 Corrected Calcium 9.3 mg/dL (8.5-10.1) 08/01/18 05:05 Total Bilirubin 0.10 mg/dL (0.2-1.0) L 08/01/18 05:05 AST 13 Units/L (15-37) L 08/01/18 05:05 ALT 17 Units/L (12-78) 08/01/18 05:05 Alkaline Phosphatase 88 Units/L (46-116) 08/01/18 05:05 Creatine Kinase 123 Units/L (26-192) 07/31/18 14:58 CK-MB (CK-2) < 1.0 ng/mL (0-4.0) 07/31/18 14:58 CK/CKMB % Calc 0.8 % (<4) 07/31/18 14:58 Troponin I < 0.02 ng/mL (0-1.5) 07/31/18 14:58 Total Protein 8.6 g/dL (6.4-8.2) H 08/01/18 05:05 Albumin 3.1 g/dL (3.4-5.0) L 08/01/18 05:05 Globulin 5.5 g/dL (2.5-4.5) H 08/01/18 05:05 Albumin/Globulin Ratio 0.6 Ratio (1.1-2.1) L 08/01/18 05:05 - Plan (1) COPD exacerbation Status: Acute Plan: RESP THERAPY CONTINUED. ABG ON ADMISSION, SUPPLEMENTAL O2. PPI, CXR, BLOOD AND SPUTUM CULTURE COLLECTED ON ADMISSION. IV LEVAQUIN, IV SOLU MEDROL. JET NEBS, EKG AND CE STABLE. BP MONITORING, VERIFY HOME MEDS, RESUME BP MEDICATION. LE UE R/O DVT PENDING (2) Chest pain Status: Acute Qualifiers: Chest pain type: precordial pain Qualified Code(s): R07.2 - Precordial pain (3) SOB (shortness of breath) Status: Acute (4) Lower extremity edema Status: Acute (5) GERD (gastroesophageal reflux disease) Status: Chronic (6) Hypertension Status: Chronic Plan: RESUME HOME MEDS MONITOR
[2018-08-01] MEDS: HYZAAR 50/12.5 MG PO SCH (13:57)
[2018-08-01] MEDS: NORVASC TAB 10 MG PO SCH (13:57)
[2018-08-02 05:56] LABS: BASOPHILS # (AUTO) 0.1 X10^3/uL (0.0-0.1); BASOPHILS % (AUTO) 0.4 % (0.2-1.0); EOSINOPHILS % (AUTO) 0.1 % (0.9-2.9); HEMATOCRIT 36.3 % (36.0-47.0); HEMOGLOBIN 11.4 g/dL (12.0-16.0); LYMPHOCYTES # (AUTO) 2.8 X10^3/uL (1.3-2.9); LYMPHOCYTES % (AUTO) 21.8 % (21.0-51.0); MEAN CORPUSCULAR HEMOGLOBIN 24.5 pg (27.0-34.0); MEAN CORPUSCULAR HGB CONC 31.4 g/dL (33.0-35.0); MEAN CORPUSCULAR VOLUME 78.2 fL (80.0-100.0); MEAN PLATELET VOLUME 8.8 fL (7.4-11.0); MONOCYTES # (AUTO) 1.1 x10^3/uL (0.3-0.8); MONOCYTES % (AUTO) 8.3 % (0.0-13.0); NEUTROPHILS % (AUTO) 69.4 % (42.0-75.0); PLATELET COUNT 348 X10^3/uL (150.0-450.0); RED BLOOD COUNT 4.64 X10^6/uL (3.5-5.4)
[2018-08-02] MEDS: NEURONTIN CAP 300 MG PO SCH ×3 (06:00→21:06)
[2018-08-02 06:25] LABS: ALANINE AMINOTRANSFERASE 15 Units/L (12-78); ALBUMIN 2.8 g/dL (3.4-5.0); ALKALINE PHOSPHATASE 78 Units/L (46-116); ANISOCYTOSIS 1+; ASPARTATE AMINO TRANSFERASE 9 Units/L (15-37); BLOOD UREA NITROGEN 14 mg/dL (7-18); CALCIUM 8.3 mg/dL (8.5-10.1); CARBON DIOXIDE 29.6 mmol/L (21-32); CHLORIDE 101 mmol/L (98-107); COR CA(FOR HYPOALB) 9.3 mg/dL (8.5-10.1); COR NA(FOR HYPERGLY) 140 mmol/L (136-145); HYPOCHROMASIA SLIGHT; PLATELET MORPHOLOGY COMMENT NORMAL (NORMAL); SODIUM 139 mmol/L (136-145); TOTAL PROTEIN 7.4 g/dL (6.4-8.2); eGFR NON BLACK RACES > 60 (>60)
[2018-08-02] MEDS: PROVENTIL NEB TX 0.083% 2.5MG/ 3ML NEB SCH ×4 (08:22→20:19)
[2018-08-02] MEDS: PULMICORT NEB TX 0.5 MG NEB SCH ×2 (08:22→20:19)
[2018-08-02] MEDS: LOVENOX INJ 40 MG SYR SC SCH (08:27)
[2018-08-02] MEDS: LEVAQUIN PREMIX IV 750 MG 750 MG/150 ML BAG IV SCH (08:27)
[2018-08-02] MEDS: HYZAAR 50/12.5 MG PO SCH (08:27)
[2018-08-02] MEDS: NORVASC TAB 10 MG PO SCH (08:28)
[2018-08-02] MEDS: PROTONIX INJ 40 MG VIAL IVP SCH (08:28)
[2018-08-02] MEDS: ROBITUSSIN DM PO SCH ×4 (08:28→21:06)
[2018-08-02] MEDS: NORCO 10/325 TAB PO PRN (16:32)
[2018-08-02] MEDS ORDERED: K-RIDER 10 MEQ/NS 100 ML 10 MEQ/100 ML BAG IV PRN (18:08)
[2018-08-02] MEDS ORDERED: KLOR-CON PO PRN (18:08)
[2018-08-02] MEDS ORDERED: MICRO K EXTEN CAP 10 MEQ PO PRN (18:08)
[2018-08-02] MEDS ORDERED: K-DUR TAB 20 MEQ PO PRN (18:08)
[2018-08-02] MEDS ORDERED: POTASSIUM CHLORIDE LIQ 20 MEQ UDC PO PRN (18:08)
[2018-08-02] MEDS ORDERED: POTASSIUM CHLORIDE LIQ 20 MEQ UDC ONE (18:08)
[2018-08-02] MEDS ORDERED: POTASSIUM CHL 60 MEQ/NS 0.45% 500 ML IV PRN (18:08)
[2018-08-02] MEDS ORDERED: POTASSIUM CHL 40 MEQ/NS 0.45% 500 ML IV PRN (18:08)
[2018-08-03 05:24] LABS: BASOPHILS # (AUTO) 0.1 X10^3/uL (0.0-0.1); BASOPHILS % (AUTO) 0.9 % (0.2-1.0); EOSINOPHILS # (AUTO) 0.1 x10^3/uL (0.0-0.2); HEMATOCRIT 35.1 % (36.0-47.0); LYMPHOCYTES % (AUTO) 44.5 % (21.0-51.0); MEAN CORPUSCULAR HEMOGLOBIN 24.4 pg (27.0-34.0); MEAN CORPUSCULAR HGB CONC 31.4 g/dL (33.0-35.0); MEAN CORPUSCULAR VOLUME 77.7 fL (80.0-100.0); MEAN PLATELET VOLUME 8.6 fL (7.4-11.0); MONOCYTES # (AUTO) 0.7 x10^3/uL (0.3-0.8); MONOCYTES % (AUTO) 7.7 % (0.0-13.0); NEUTROPHILS # (AUTO) 4.1 x10^3/uL (2.2-4.8); NEUTROPHILS % (AUTO) 45.9 % (42.0-75.0); PLATELET COUNT 319 X10^3/uL (150.0-450.0); RED BLOOD COUNT 4.52 X10^6/uL (3.5-5.4); WHITE BLOOD COUNT 8.9 X10^3/uL (3.6-10.0)
[2018-08-03 05:32] LABS: ALANINE AMINOTRANSFERASE 15 Units/L (12-78); ALBUMIN 2.7 g/dL (3.4-5.0); ALKALINE PHOSPHATASE 71 Units/L (46-116); ASPARTATE AMINO TRANSFERASE 8 Units/L (15-37); BLOOD UREA NITROGEN 17 mg/dL (7-18); CALCIUM 7.8 mg/dL (8.5-10.1); CARBON DIOXIDE 31.3 mmol/L (21-32); CHLORIDE 100 mmol/L (98-107); COR CA(FOR HYPOALB) 8.8 mg/dL (8.5-10.1); COR NA(FOR HYPERGLY) 139 mmol/L (136-145); CREATININE 0.88 mg/dL (0.55-1.02); MAGNESIUM 1.6 mg/dL (1.7-2.9); SODIUM 139 mmol/L (136-145); TOTAL PROTEIN 6.9 g/dL (6.4-8.2); eGFR NON BLACK RACES > 60 (>60)
[2018-08-03 06:03] LABS: ANISOCYTOSIS 1+; HYPOCHROMASIA 1+; PLATELET MORPHOLOGY COMMENT NORMAL (NORMAL)
[2018-08-03] MEDS: NEURONTIN CAP 300 MG PO SCH (06:09)
[2018-08-03] MEDS: HYZAAR 50/12.5 MG PO SCH (08:33)
[2018-08-03] MEDS: PROTONIX INJ 40 MG VIAL IVP SCH (08:33)
[2018-08-03] MEDS: NORVASC TAB 10 MG PO SCH (08:34)
[2018-08-03] MEDS: LEVAQUIN PREMIX IV 750 MG 750 MG/150 ML BAG IV SCH (08:35)
[2018-08-03] MEDS: LOVENOX INJ 40 MG SYR SC SCH (08:35)
[2018-08-03] MEDS: PROVENTIL NEB TX 0.083% 2.5MG/ 3ML NEB SCH (08:50)
[2018-08-03] MEDS: PULMICORT NEB TX 0.5 MG NEB SCH (08:50)
[2018-08-03] MEDS ORDERED: MILK OF MAGNESIA PO SCH (09:00)
[2018-08-03] MEDS ORDERED: NS 500 ML IV 500 ML IV ONE (10:51)
[2018-08-03 12:48] VITALS: BP 141/65
[2018-08-03] MEDS ORDERED: COLACE CAP 100 MG PO SCH (21:00)
--- NOTE | 2018-08-18 10:16 | PCM.PROG ---
Progress Note - Progress Note for Day of Date of Exam: 08/02/18 - Subjective Subjective: 52 BF ADMITTED ON 07/31 WITH SOB, COPD EXACERBATION AND CHEST PAIN. CONTINUES WITH DIFFUSE EXP WHEEZES. DENIES ANY OTHER COMPLAINTS AT PRESENT. - Past Medical Family Social History Past Med/Fam/Surg Hx: No changes since H&P Allergies: Allergies ibuprofen [From Motrin] Allergy (Verified 08/04/17 14:23) meloxicam Allergy (Verified 08/04/17 14:23) - Review of Systems ROS: No change since H&P - Vital Signs and I&O's Vital Signs: Temperature 98.2 F Pulse Rate [Left Brachial] 92 Pulse Rate 81 Respiratory Rate 20 Blood Pressure [Right Calf] 162/96 Blood Pressure [Right Arm] 141/65 Blood Pressure [Left Arm] 92/51 Blood Pressure 162/96 O2 Sat by Pulse Oximetry 93 - Physical Exam Oriented: Normal Eyes: Normal Ear: Normal Nose: Normal Throat: Dry Respiratory: Diminished, Wheezes Cardiovascular: Normal, Edema (BILATERAL TRACE LE EDEMA) Auscultation: Bowel Sounds: Normal Palpation: Normal Tenderness: RUQ, Mild. negative: Rebound, Guarding, Rigidity Skin: Decreased Turgur Musculoskeletal: Right, Left, Knee, Tender, Crepitance Psychiatric: Anxiety Mood Description: Calm Affect: Anxious Speech Pattern: Clear, Appropriate - Laboratory and Diagnostics Result Diagrams: 08/03/18 04:30 08/03/18 04:30 Labs: 08/01/18 10:27 Blood Blood Culture - Final 08/01/18 10:21 Blood Blood Culture - Final 07/31/18 14:52 Blood Blood Culture - Final 07/31/18 14:58 Blood Blood Culture - Final 07/31/18 16:13 Sputum - Expectorated Sputum Sputum Culture - Final 07/31/18 16:13 Sputum - Expectorated Sputum - Final Laboratory WBC 8.9 X10^3/uL (3.6-10.0) 08/03/18 04:30 RBC 4.52 X10^6/uL (3.5-5.4) 08/03/18 04:30 Hgb 11.0 g/dL (12.0-16.0) L 08/03/18 04:30 Hct 35.1 % (36.0-47.0) L 08/03/18 04:30 MCV 77.7 fL (80.0-100.0) L 08/03/18 04:30 MCH 24.4 pg (27.0-34.0) L 08/03/18 04:30 MCHC 31.4 g/dL (33.0-35.0) L 08/03/18 04:30 RDW 20.0 % (11.6-16.5) H 08/03/18 04:30 Plt Count 319 X10^3/uL (150.0-450.0) 08/03/18 04:30 Plt Count Comment Adequate (ADEQUATE) 08/03/18 04:30 MPV 8.6 fL (7.4-11.0) 08/03/18 04:30 Neut % (Auto) 45.9 % (42.0-75.0) 08/03/18 04:30 Lymph % (Auto) 44.5 % (21.0-51.0) 08/03/18 04:30 [place] % (Auto) 7.7 % (0.0-13.0) 08/03/18 04:30 Eos % (Auto) 1.0 % (0.9-2.9) 08/03/18 04:30 Baso % (Auto) 0.9 % (0.2-1.0) 08/03/18 04:30 Neut # (Auto) 4.1 x10^3/uL (2.2-4.8) 08/03/18 04:30 Lymph # (Auto) 4.0 X10^3/uL (1.3-2.9) H 08/03/18 04:30 [place] # (Auto) 0.7 x10^3/uL (0.3-0.8) 08/03/18 04:30 Eos # (Auto) 0.1 x10^3/uL (0.0-0.2) 08/03/18 04:30 Baso # (Auto) 0.1 X10^3/uL (0.0-0.1) 08/03/18 04:30 Absolute Nucleated RBC 0.1 /100WBC 08/03/18 04:30 Plt Morphology Comment Normal (NORMAL) 08/03/18 04:30 RBC Morphology Abnormal (NORMAL) A 08/03/18 04:30 Hypochromasia 1+ A 08/03/18 04:30 Anisocytosis 1+ A 08/03/18 04:30 Sample Site Lbr 07/31/18 14:53 ABG pH 7.430 (7.35-7.45) 07/31/18 14:53 ABG pCO2 51.0 mmHg (35.0-45.0) H* 07/31/18 14:53 ABG pO2 65.0 mmHg (80.0-100.0) L 07/31/18 14:53 ABG HCO3 33.9 mmol/L (22-26) H* 07/31/18 14:53 ABG O2 Saturation 93.0 % (90-100) 07/31/18 14:53 ABG Base Excess 8.2 mmol/L (-2.0-2.0) H 07/31/18 14:53 Adam Test N/a 07/31/18 14:53 A-a Gradient 21.0 mmHg 07/31/18 14:53 FiO2 21 07/31/18 14:53 Blood Gas Comments Pt adonay wel elj 07/31/18 14:53 Sodium 139 mmol/L (136-145) 08/03/18 04:30 Corrected Sodium 139 mmol/L (136-145) 08/03/18 04:30 Potassium 3.3 mmol/L (3.5-5.1) L 08/03/18 04:30 Chloride 100 mmol/L (98-107) 08/03/18 04:30 Carbon Dioxide 31.3 mmol/L (21-32) 08/03/18 04:30 BUN 17 mg/dL (7-18) 08/03/18 04:30 Creatinine 0.88 mg/dL (0.55-1.02) 08/03/18 04:30 Est GFR (MDRD) Af Amer > 60 (>60) 08/03/18 04:30 Est GFR (MDRD) Non-Af > 60 (>60) 08/03/18 04:30 Glucose 113 mg/dL (65-99) H 08/03/18 04:30 Calcium 7.8 mg/dL (8.5-10.1) L 08/03/18 04:30 Corrected Calcium 8.8 mg/dL (8.5-10.1) 08/03/18 04:30 Magnesium 1.6 mg/dL (1.7-2.9) L 08/03/18 04:30 Total Bilirubin 0.10 mg/dL (0.2-1.0) L 08/03/18 04:30 AST 8 Units/L (15-37) L 08/03/18 04:30 ALT 15 Units/L (12-78) 08/03/18 04:30 Alkaline Phosphatase 71 Units/L (46-116) 08/03/18 04:30 Creatine Kinase 123 Units/L (26-192) 07/31/18 14:58 CK-MB (CK-2) < 1.0 ng/mL (0-4.0) 07/31/18 14:58 CK/CKMB % Calc 0.8 % (<4) 07/31/18 14:58 Troponin I < 0.02 ng/mL (0-1.5) 07/31/18 14:58 Total Protein 6.9 g/dL (6.4-8.2) 08/03/18 04:30 Albumin 2.7 g/dL (3.4-5.0) L 08/03/18 04:30 Globulin 4.2 g/dL (2.5-4.5) 08/03/18 04:30 Albumin/Globulin Ratio 0.6 Ratio (1.1-2.1) L 08/03/18 04:30 - Plan (1) COPD exacerbation Status: Acute Plan: RESP THERAPY CONTINUED. ABG ON ADMISSION, SUPPLEMENTAL O2. PPI, CXR, BLOOD AND SPUTUM CULTURE COLLECTED ON ADMISSION. IV LEVAQUIN, IV SOLU MEDROL. JET NEBS, EKG AND CE STABLE. BP MONITORING, VERIFY HOME MEDS, RESUME BP MEDI CATION. LE UE R/O DVT PENDING (2) Chest pain Status: Acute Qualifiers: Chest pain type: precordial pain Qualified Code(s): R07.2 - Precordial pain (3) SOB (shortness of breath) Status: Acute Plan: O2, NEBS (4) Lower extremity edema Status: Acute Plan: DIURECTICS (5) GERD (gastroesophageal reflux disease) Status: Chronic (6) Hypertension Status: Chronic Plan: RESUME HOME MEDS MONITOR
--- NOTE | 2018-08-18 10:23 | PCM.DCPLAN ---
Discharge Summary - Admission Date Date of Admission: 08/02/18 - Discharge Date Discharge Date: 08/03/18 - Admission Diagnoses (1) COPD exacerbation Status: Acute (2) Chest pain Status: Acute (3) SOB (shortness of breath) Status: Acute (4) Lower extremity edema Status: Acute (5) GERD (gastroesophageal reflux disease) Status: Chronic (6) Hypertension Status: Chronic - Discharge Diagnoses Discharge Diagnosis: SAME ADMISSION DIAGNOSIS - Discharge Medications Discharge Medications: Home Medication List amlodipine 1 tab PO DAILY 07/31/18 [History] furosemide 1 tab PO DAILY 07/31/18 [History] potassium chloride 1 tab PO DAILY 07/31/18 [History] Prescriptions: - Hospital Course Vital Signs: Temperature 98.2 F Pulse Rate [Left Brachial] 92 Pulse Rate 81 Respiratory Rate 20 Blood Pressure [Right Calf] 162/96 Blood Pressure [Right Arm] 141/65 Blood Pressure [Left Arm] 92/51 Blood Pressure 162/96 O2 Sat by Pulse Oximetry 93 Latest Lab Results: Laboratory Last Values WBC 8.9 X10^3/uL (3.6-10.0) 08/03/18 04:30 RBC 4.52 X10^6/uL (3.5-5.4) 08/03/18 04:30 Hgb 11.0 g/dL (12.0-16.0) L 08/03/18 04:30 Hct 35.1 % (36.0-47.0) L 08/03/18 04:30 MCV 77.7 fL (80.0-100.0) L 08/03/18 04:30 MCH 24.4 pg (27.0-34.0) L 08/03/18 04:30 MCHC 31.4 g/dL (33.0-35.0) L 08/03/18 04:30 RDW 20.0 % (11.6-16.5) H 08/03/18 04:30 Plt Count 319 X10^3/uL (150.0-450.0) 08/03/18 04:30 Plt Count Comment Adequate (ADEQUATE) 08/03/18 04:30 MPV 8.6 fL (7.4-11.0) 08/03/18 04:30 Neut % (Auto) 45.9 % (42.0-75.0) 08/03/18 04:30 Lymph % (Auto) 44.5 % (21.0-51.0) 08/03/18 04:30 [place] % (Auto) 7.7 % (0.0-13.0) 08/03/18 04:30 Eos % (Auto) 1.0 % (0.9-2.9) 08/03/18 04:30 Baso % (Auto) 0.9 % (0.2-1.0) 08/03/18 04:30 Neut # (Auto) 4.1 x10^3/uL (2.2-4.8) 08/03/18 04:30 Lymph # (Auto) 4.0 X10^3/uL (1.3-2.9) H 08/03/18 04:30 [place]on # (Auto) 0.7 x10^3/uL (0.3-0.8) 08/03/18 04:30 Eos # (Auto) 0.1 x10^3/uL (0.0-0.2) 08/03/18 04:30 Baso # (Auto) 0.1 X10^3/uL (0.0-0.1) 08/03/18 04:30 Absolute Nucleated RBC 0.1 /100WBC 08/03/18 04:30 Plt Morphology Comment Normal (NORMAL) 08/03/18 04:30 RBC Morphology Abnormal (NORMAL) A 08/03/18 04:30 Hypochromasia 1+ A 08/03/18 04:30 Anisocytosis 1+ A 08/03/18 04:30 Sample Site Lbr 07/31/18 14:53 ABG pH 7.430 (7.35-7.45) 07/31/18 14:53 ABG pCO2 51.0 mmHg (35.0-45.0) H* 07/31/18 14:53 ABG pO2 65.0 mmHg (80.0-100.0) L 07/31/18 14:53 ABG HCO3 33.9 mmol/L (22-26) H* 07/31/18 14:53 ABG O2 Saturation 93.0 % (90-100) 07/31/18 14:53 ABG Base Excess 8.2 mmol/L (-2.0-2.0) H 07/31/18 14:53 Adam Test N/a 07/31/18 14:53 A-a Gradient 21.0 mmHg 07/31/18 14:53 FiO2 21 07/31/18 14:53 Blood Gas Comments Pt adonay wel elj 07/31/18 14:53 Sodium 139 mmol/L (136-145) 08/03/18 04:30 Corrected Sodium 139 mmol/L (136-145) 08/03/18 04:30 Potassium 3.3 mmol/L (3.5-5.1) L 08/03/18 04:30 Chloride 100 mmol/L (98-107) 08/03/18 04:30 Carbon Dioxide 31.3 mmol/L (21-32) 08/03/18 04:30 BUN 17 mg/dL (7-18) 08/03/18 04:30 Creatinine 0.88 mg/dL (0.55-1.02) 08/03/18 04:30 Est GFR (MDRD) Af Amer > 60 (>60) 08/03/18 04:30 Est GFR (MDRD) Non-Af > 60 (>60) 08/03/18 04:30 Glucose 113 mg/dL (65-99) H 08/03/18 04:30 Calcium 7.8 mg/dL (8.5-10.1) L 08/03/18 04:30 Corrected Calcium 8.8 mg/dL (8.5-10.1) 08/03/18 04:30 Magnesium 1.6 mg/dL (1.7-2.9) L 08/03/18 04:30 Total Bilirubin 0.10 mg/dL (0.2-1.0) L 08/03/18 04:30 AST 8 Units/L (15-37) L 08/03/18 04:30 ALT 15 Units/L (12-78) 08/03/18 04:30 Alkaline Phosphatase 71 Units/L (46-116) 08/03/18 04:30 Creatine Kinase 123 Units/L (26-192) 07/31/18 14:58 CK-MB (CK-2) < 1.0 ng/mL (0-4.0) 07/31/18 14:58 CK/CKMB % Calc 0.8 % (<4) 07/31/18 14:58 Troponin I < 0.02 ng/mL (0-1.5) 07/31/18 14:58 Total Protein 6.9 g/dL (6.4-8.2) 08/03/18 04:30 Albumin 2.7 g/dL (3.4-5.0) L 08/03/18 04:30 Globulin 4.2 g/dL (2.5-4.5) 08/03/18 04:30 Albumin/Globulin Ratio 0.6 Ratio (1.1-2.1) L 08/03/18 04:30 Hospital Course: [address] GLORIA'S WITH CO SOB, INCREASED WHEEZING AND RIGHT SIDE CHEST PAIN. PT HAS HX OF COPD AND HAS BEEN USING NEB TREATMENTS WITHOUT IMPROVEMENT. PT SEEN DR GARCIAS FOR STRESS TEST 2 WEEKS AGO, SET UP FOR HEART CATH AT [facility]. PT CO PAIN TO RIGHT CHEST ON AND OFF FOR SEVERAL WEEKS WAS CONCERNED WITH WAS HER "HEART". PT HAD DIFFUSE EXP WHEEZING AND O2 SAT 92%. PT CO RLE PAIN AND INCREASED SWELLING. PT HAS HX OF SEVERE KNEE OA. PT HAS PMH OF HTN, COPD, CARDIOMEGALY, SLEEP APNEA, OA. PT ADMITTED FOR TREATMENT OF COPD EXACERBATION, SOB AND CARDIAC MONITORING. PATIENT WAS GIVEN NEBS, O2, ANTIBIOTICS. PATIENT WAS TRANSFERRED TO [facility] FOR FURTHER CARDIAC EVALUATION. - Discharge Plan Disposition: [facility] Condition: Stable - Follow ups/Referrals Follow ups/Referrals: [facility] [Other] - 1 WEEK (PT TRANSFERRED TO [facility] [place] - Instructions
== END 2018-08-03 12:15 | disposition short-term general hospital (02) | DRG 192 ==
LOC: MED/SURG
PROVIDERS: ADMIT Internal Medicine; ATTEND Internal Medicine
DX: Z87.440 Personal history of urinary (tract) infections; R60.0 Localized edema; E78.2 Mixed hyperlipidemia; J44.1 Chronic obstructive pulmonary disease with (acute) exacerbation; M19.90 Unspecified osteoarthritis, unspecified site; R06.02 Shortness of breath; M79.661 Pain in right lower leg; I10 Essential (primary) hypertension; K21.9 Gastro-esophageal reflux disease without esophagitis; R07.2 Precordial pain; F41.8 Other specified anxiety disorders; I25.10 Atherosclerotic heart disease of native coronary artery without angina pectoris
CPT/HCPCS: 36415; 36600; 71010; 71045; 80053; 82550; 82553; 82803; 83735; 84484; 85025; 87040; 87205; 93005; 93010; 94640; 94760; 99231; A4222; C9113; G0378; J1650; J1956; J2920; J7040; J7613; J7626

== ENCOUNTER 2019-08-24 11:54 | Inpatient (IN) ==
[2019-08-24 12:17] VITALS: BMI 67.7
--- NOTE | 2019-08-24 12:39 | DR.SOBA ---
HPI Time Seen Time Seen by Provider: 08/24/19 12:37 Primary Care Physician Primary Care Physician: MELVA RUSH HPI Comment HPI Comment: PATIENT IS 54YR OLD FEMALE IN THE EMERGENCY ROOM WITH INCREASING SOB, SWELLING LOWER EXTREMITIES AND RIGHT KNEE PAIN FOR FEW WEEKS THAT IS GETTING WORSE. NO TRAUMA TO THE KNEE BUT HAVE HISTORY OF ARTHRTIS. DENIES FEVER OR COUGH. KNEE PAIN CAUSE HER MOVEMENT TO HAVE INCREASE PAIN TO RIGHT KNEE. PAIN IS 10/I0 AND RADIATES TO LEGS. SOB WORSE WITH EXERTION. Complaints Chief Complaint Doctors Comments: INCREASING SOB, LOWER EXTREMITY SWELLING AND RIGHT KNEE PAIN FOR FEW WEEKS. WORSE TODAY. Chief Complaint:: PT C/O > SOB FOR WEEKS AND PT STATES IT GOT WORSE TODAY ( LUNGS CLEAR , RESP LABORDED AND PT HAS HX, OF ASTHMA AND > SWELLING TO HER LEGS ) AND PT C/O RIGHT KNEE PAIN ( PT DENIES ANY TRAUMA) PT STATES THE PAIN IS TERRIBLE .. PT IS OUT OF HER [facility] .BR Reviewed Nurses Notes Reviewed: Yes Source History Provided: Patient Mode of Arrival Mode of Arrival: Ambulatory Timing Onset of Chief Complaint: 08/11/19 Duration Duration: Weeks Context Onset:: With Light Exertion PE Risk Factors:: None History of:: Asthma Currently on:: Neither Prehospital Care:: None Modifying Factors Worsens:: Exertion Improves:: Rest Associated Signs and Symptoms Associated Signs and Symptoms: Chest Pain and Leg Swelling If Chest Pain Quality: Sharp and Pleuritic Location: Substernal If Cough Cough: None PMH PMH Past Medical History: Yes Past Medical History: Anxiety, Arthritis, Asthma, COPD, Coronary Artery Disease, Depression, Dyslipidemia, GERD and Hypertension Past Surgical History: Yes Surgical History: , Cholecystectomy and Ortho Surgery Family History History of Family Medical Conditions: No Family Medical History: Diabetes Mellitus, Cancer and Hypertension Social History Does patient currently use any type of tobacco product: No Have you used tobacco products in the last 12 months: No Type of Tobacco Use: None Does any household member use tobacco: No Alcohol Use: None Do you use any recreational Drugs:: No Lives With: Family Lives Where: Home infectious screening In the last 2 months have you had wt loss of >10#?: NO Have you had fever, night sweats or hemotysis?: No Have you traveled outside the country in the last 6 months?: No Isolation: Standard PE Vital Signs Vitals: Temperature 97.7 F Pulse Rate [Right Radial] 106 Pulse Rate 102 Respiratory Rate 22 Blood Pressure [Right Calf] 136/75 Blood Pressure [Right Arm] 151/70 Blood Pressure [Left Arm] 138/78 Blood Pressure 137/91 O2 Sat by Pulse Oximetry 94 ROR Labs Reviewed Result Diagrams: 08/30/19 05:53 08/30/19 05:53 Laboratory: 08/25/19 17:15 Sputum - Expectorated Sputum Sputum Culture - Final 08/25/19 17:15 Sputum - Expectorated Sputum - Final WBC 11.3 X10^3/uL (3.6-10.0) H 08/26/19 05:04 RBC 4.89 X10^6/uL (3.5-5.4) 08/26/19 05:04 Hgb 11.8 g/dL (12.0-16.0) L 08/26/19 05:04 Hct 37.9 % (36.0-47.0) 08/26/19 05:04 MCV 77.5 fL (80.0-100.0) L 08/26/19 05:04 MCH 24.1 pg (27.0-34.0) L 08/26/19 05:04 MCHC 31.1 g/dL (33.0-35.0) L 08/26/19 05:04 RDW 20.2 % (11.6-16.5) H 08/26/19 05:04 Plt Count 374 X10^3/uL (150.0-450.0) 08/26/19 05:04 Plt Count Comment Adequate (ADEQUATE) 08/26/19 05:04 MPV 8.2 fL (7.4-11.0) 08/26/19 05:04 Neut % (Auto) 84.5 % (42.0-75.0) H 08/26/19 05:04 Lymph % (Auto) 11.9 % (21.0-51.0) L 08/26/19 05:04 [place] % (Auto) 3.4 % (0.0-13.0) 08/26/19 05:04 Eos % (Auto) 0.0 % (0.9-2.9) L 08/26/19 05:04 Baso % (Auto) 0.2 % (0.2-1.0) 08/26/19 05:04 Neut # (Auto) 9.5 x10^3/uL (2.2-4.8) H 08/26/19 05:04 Lymph # (Auto) 1.3 X10^3/uL (1.3-2.9) 08/26/19 05:04 [place] # (Auto) 0.4 x10^3/uL (0.3-0.8) 08/26/19 05:04 Eos # (Auto) 0.0 x10^3/uL (0.0-0.2) 08/26/19 05:04 Baso # (Auto) 0.0 X10^3/uL (0.0-0.1) 08/26/19 05:04 Absolute Nucleated RBC 0.0 /100WBC 08/26/19 05:04 Plt Morphology Comment Normal (NORMAL) 08/26/19 05:04 RBC Morphology Abnormal (NORMAL) A 08/26/19 05:04 Hypochromasia Slight A 08/25/19 04:21 Anisocytosis 1+ A 08/26/19 05:04 D-Dimer 378 ng/mL (0-400) 08/24/19 13:00 Sodium 133 mmol/L (136-145) L 08/26/19 05:04 Corrected Sodium 137 mmol/L (136-145) 08/26/19 05:04 Potassium 4.3 mmol/L (3.5-5.1) 08/26/19 05:04 Chloride 96 mmol/L (98-107) L 08/26/19 05:04 Carbon Dioxide 29.3 mmol/L (21-32) 08/26/19 05:04 BUN 20 mg/dL (7-18) H 08/26/19 05:04 Creatinine 1.02 mg/dL (0.55-1.02) 08/26/19 05:04 Est GFR (MDRD) Af Amer > 60 (>60) 08/26/19 05:04 Est GFR (MDRD) Non-Af > 60 (>60) 08/26/19 05:04 Glucose 248 mg/dL (65-99) H 08/26/19 05:04 Uric Acid 5.9 mg/dL (2.6-6.0) 08/26/19 05:04 Calcium 8.8 mg/dL (8.5-10.1) 08/26/19 05:04 Corrected Calcium 9.4 mg/dL (8.5-10.1) 08/26/19 05:04 Magnesium 2.2 mg/dL (1.7-2.9) 08/26/19 05:04 Total Bilirubin 0.20 mg/dL (0.2-1.0) 08/26/19 05:04 AST 9 Units/L (15-37) L 08/26/19 05:04 ALT 15 Units/L (12-78) 08/26/19 05:04 Alkaline Phosphatase 92 Units/L (46-116) 08/26/19 05:04 Creatine Kinase 178 Units/L (26-192) 08/25/19 04:21 CK-MB (CK-2) < 1.0 ng/mL (0-4.0) 08/25/19 04:21 CK/CKMB % Calc 0.6 % (<4) 08/25/19 04:21 Troponin I < 0.02 ng/mL (0-1.5) 08/25/19 04:21 B-Natriuretic Peptide 11.3 pg/mL (0-79) 08/24/19 13:00 Total Protein 9.1 g/dL (6.4-8.2) H 08/26/19 05:04 Albumin 3.3 g/dL (3.4-5.0) L 08/26/19 05:04 Globulin 5.8 g/dL (2.5-4.5) H 08/26/19 05:04 Albumin/Globulin Ratio 0.6 Ratio (1.1-2.1) L 08/26/19 05:04 Specimen Type Clean catch urine 08/25/19 09:46 Urine Color Yellow (YELLOW) 08/25/19 09:46 Urine Appearance Clear (CLEAR) 08/25/19 09:46 Urine pH 5.0 (5.0 - 8.0) 08/25/19 09:46 Ur Specific [place] 1.020 (1.000-1.030) 08/25/19 09:46 Urine Protein 1+ (NEGATIVE) 08/25/19 09:46 Urine Glucose (UA) Negative (NEGATIVE) 08/25/19 09:46 Urine Ketones Negative (NEGATIVE) 08/25/19 09:46 Urine Occult Blood 4+ (NEGATIVE) 08/25/19 09:46 Urine Nitrite Negative (NEGATIVE) 08/25/19 09:46 Urine Bilirubin Negative (NEGATIVE) 08/25/19 09:46 Urine Urobilinogen Normal (NORMAL) 08/25/19 09:46 Ur Leukocyte Esterase 1+ (NEGATIVE) 08/25/19 09:46 Urine RBC 3-5 /HPF (0-3) A 08/25/19 09:46 Urine WBC 0-2 /HPF (0-5) 08/25/19 09:46 Ur Squamous Epith Cells Many /HPF (NEGATIVE) 08/25/19 09:46 Urine Bacteria Negative /HPF (NEGATIVE) 08/25/19 09:46 Urine Mucus Few /HPF (NEGATIVE) 08/25/19 09:46 Ur Culture Indicated? No/not indicated 08/25/19 09:46 Opioid Opioid Risk Tool Age (Asad box if 16-45): No History of Preadolescent Sexual Abuse: No Total: 0 Total Score Risk Category: Low Risk Copyright: Dez HURST predicting aberrant behaviors Instructions Instructions: Knee Pain, Adult Chronic Obstructive Pulmonary Disease, [id number] Chronic Obstructive Pulmonary Disease Exacerbation, [id number] Hypertension, Bizt-nu-Lewm Hyponatremia, Abjk-bj-[id number] Heart Failure, [id number]-bc-[id number] Form - Daily Weight Record Forms: Excuse From Work or School Patient Portal
--- NOTE | 2019-08-24 13:09 | RAD ---
HISTORY: Shortness of breath, prior history of hypertension, COPD and asthma. Study: Single-view chest, done portably Comparison: 07/29/2019. Findings: Trachea is midline. The heart size is upper normal with pulmonary vascular congestion. The lungs are normally inflated without consolidation, CHF, pleural fluid or pneumothorax. IMPRESSION: Normal heart size with pulmonary vascular congestion. Normally inflated lungs without infiltrate. Reported By:
[2019-08-24 13:15] LABS: BASOPHILS # (AUTO) 0.1 X10^3/uL (0.0-0.1); EOSINOPHILS # (AUTO) 0.1 x10^3/uL (0.0-0.2); EOSINOPHILS % (AUTO) 0.8 % (0.9-2.9); HEMOGLOBIN 11.2 g/dL (12.0-16.0); LYMPHOCYTES # (AUTO) 2.7 X10^3/uL (1.3-2.9); LYMPHOCYTES % (AUTO) 25.3 % (21.0-51.0); MEAN CORPUSCULAR HEMOGLOBIN 24.7 pg (27.0-34.0); MEAN CORPUSCULAR HGB CONC 31.9 g/dL (33.0-35.0); MEAN CORPUSCULAR VOLUME 77.4 fL (80.0-100.0); MEAN PLATELET VOLUME 7.9 fL (7.4-11.0); MONOCYTES # (AUTO) 0.8 x10^3/uL (0.3-0.8); MONOCYTES % (AUTO) 7.1 % (0.0-13.0); NEUTROPHILS # (AUTO) 7.1 x10^3/uL (2.2-4.8); NEUTROPHILS % (AUTO) 65.8 % (42.0-75.0); PLATELET COUNT 324 X10^3/uL (150.0-450.0); RED BLOOD COUNT 4.53 X10^6/uL (3.5-5.4); RED CELL DISTRIBUTION WIDTH 19.9 % (11.6-16.5); WHITE BLOOD COUNT 10.7 X10^3/uL (3.6-10.0)
[2019-08-24 13:30] LABS: PLATELET MORPHOLOGY COMMENT NORMAL (NORMAL)
[2019-08-24 13:40] LABS: BLOOD UREA NITROGEN 10 mg/dL (7-18); CALCIUM 8.7 mg/dL (8.5-10.1); CARBON DIOXIDE 32.4 mmol/L (21-32); CHLORIDE 99 mmol/L (98-107); CREATININE 0.85 mg/dL (0.55-1.02); SODIUM 138 mmol/L (136-145); TROPONIN I < 0.02 ng/mL (0-1.5); eGFR NON BLACK RACES > 60 (>60)
[2019-08-24 13:44] LABS: ALANINE AMINOTRANSFERASE 15 Units/L (12-78); ALBUMIN 3.3 g/dL (3.4-5.0); ALKALINE PHOSPHATASE 81 Units/L (46-116); ASPARTATE AMINO TRANSFERASE 11 Units/L (15-37); CKMB % 0.5 % (<4); COR CA(FOR HYPOALB) 9.3 mg/dL (8.5-10.1); CREATINE KINASE 197 Units/L (26-192); CREATINE KINASE MB < 1.0 ng/mL (0-4.0); TOTAL PROTEIN 8.6 g/dL (6.4-8.2)
[2019-08-24] MEDS ORDERED: TORADOL 60 MG VIAL ONE (15:31)
[2019-08-24 15:42] LABS: MAGNESIUM 1.7 mg/dL (1.7-2.9)
[2019-08-24] MEDS ORDERED: TORADOL 60 MG VIAL IM ONE (15:43)
--- NOTE | 2019-08-24 15:55 | RAD ---
HISTORY: Pain Study: Two-view right knee Comparison: 05/21/2018. Findings: There is severe narrowing of medial joint space compartment with large osteophytes present primarily medially but also laterally and involving the patella. A large suprapatellar joint effusion is present. A fracture or dislocation is not identified. There is a large calcific density seen projected over the spread suprapatellar space on the lateral view. This may represent a large joint body. This was present on patient's prior studies. The distal femur, proximal tibia and fibula appear intact as does the patella. There appears to be generalized soft tissue swelling of the knee. IMPRESSION: Severe degenerative disease present involving the medial joint space compartment of the right knee and to a lesser extent patellofemoral compartment. A large joint effusion is present. There is a large calcific density which may be present within the region of the suprapatellar bursa. No fracture or dislocation is seen. Reported By:
[2019-08-24] MEDS ORDERED: LASIX IVP ONE (17:26)
[2019-08-24] MEDS: LASIX IVP SCH ×2 (18:22→21:11)
[2019-08-24] MEDS: PROVENTIL NEB TX 0.083% 2.5MG/ 3ML NEB SCH (20:11)
[2019-08-24] MEDS ORDERED: PROVENTIL NEB TX 0.083% 2.5MG/ 3ML NEB SCH (21:00)
[2019-08-24] MEDS: AMBIEN PO PRN (21:41)
[2019-08-24] MEDS: NORCO 10/325 TAB PO PRN (21:41)
[2019-08-25 00:03] LABS: CKMB % 0.5 % (<4); CREATINE KINASE 196 Units/L (26-192); CREATINE KINASE MB < 1.0 ng/mL (0-4.0); TROPONIN I < 0.02 ng/mL (0-1.5)
[2019-08-25 05:25] LABS: BASOPHILS # (AUTO) 0.1 X10^3/uL (0.0-0.1); BASOPHILS % (AUTO) 0.8 % (0.2-1.0); EOSINOPHILS # (AUTO) 0.1 x10^3/uL (0.0-0.2); EOSINOPHILS % (AUTO) 1.7 % (0.9-2.9); HEMATOCRIT 33.4 % (36.0-47.0); HEMOGLOBIN 10.5 g/dL (12.0-16.0); LYMPHOCYTES # (AUTO) 2.6 X10^3/uL (1.3-2.9); LYMPHOCYTES % (AUTO) 31.5 % (21.0-51.0); MEAN CORPUSCULAR HEMOGLOBIN 24.6 pg (27.0-34.0); MEAN CORPUSCULAR HGB CONC 31.5 g/dL (33.0-35.0); MEAN CORPUSCULAR VOLUME 78.1 fL (80.0-100.0); MEAN PLATELET VOLUME 8.3 fL (7.4-11.0); MONOCYTES # (AUTO) 0.8 x10^3/uL (0.3-0.8); MONOCYTES % (AUTO) 9.5 % (0.0-13.0); NEUTROPHILS # (AUTO) 4.7 x10^3/uL (2.2-4.8); NEUTROPHILS % (AUTO) 56.5 % (42.0-75.0); PLATELET COUNT 280 X10^3/uL (150.0-450.0); RED BLOOD COUNT 4.28 X10^6/uL (3.5-5.4); RED CELL DISTRIBUTION WIDTH 20.1 % (11.6-16.5); WHITE BLOOD COUNT 8.4 X10^3/uL (3.6-10.0)
[2019-08-25 05:50] LABS: ANISOCYTOSIS SLIGHT; HYPOCHROMASIA SLIGHT; PLATELET MORPHOLOGY COMMENT NORMAL (NORMAL)
[2019-08-25 05:55] LABS: ALANINE AMINOTRANSFERASE 16 Units/L (12-78); ALBUMIN 2.9 g/dL (3.4-5.0); ALKALINE PHOSPHATASE 79 Units/L (46-116); ASPARTATE AMINO TRANSFERASE 9 Units/L (15-37); BLOOD UREA NITROGEN 16 mg/dL (7-18); CALCIUM 8.2 mg/dL (8.5-10.1); CARBON DIOXIDE 31.7 mmol/L (21-32); CHLORIDE 100 mmol/L (98-107); CKMB % 0.6 % (<4); COR CA(FOR HYPOALB) 9.1 mg/dL (8.5-10.1); COR NA(FOR HYPERGLY) 140 mmol/L (136-145); CREATINE KINASE 178 Units/L (26-192); CREATINE KINASE MB < 1.0 ng/mL (0-4.0); CREATININE 0.95 mg/dL (0.55-1.02); SODIUM 139 mmol/L (136-145); TOTAL PROTEIN 7.7 g/dL (6.4-8.2); TROPONIN I < 0.02 ng/mL (0-1.5); eGFR NON BLACK RACES > 60 (>60)
[2019-08-25] MEDS ORDERED: MICRO K EXTEN CAP 10 MEQ PO PRN (07:29)
[2019-08-25] MEDS ORDERED: KLOR-CON PO PRN (07:29)
[2019-08-25] MEDS ORDERED: MAGNESIUM SULFATE 1 GRAM/100 mL PREMIX 1 GM/100 ML BAG IV PRN (07:29)
[2019-08-25] MEDS ORDERED: POTASSIUM CHLORIDE LIQ 20 MEQ UDC PO PRN (07:29)
[2019-08-25] MEDS ORDERED: POTASSIUM CHL 40 MEQ/NS 0.45% 500 ML IV PRN (07:29)
[2019-08-25] MEDS ORDERED: K-RIDER 10 MEQ/NS 100 ML 10 MEQ/100 ML BAG IV PRN (07:29)
[2019-08-25] MEDS ORDERED: POTASSIUM CHL 60 MEQ/NS 0.45% 500 ML IV PRN (07:29)
[2019-08-25] MEDS ORDERED: NS 100 ML IV 100 ML IV ONE (08:01)
[2019-08-25] MEDS ORDERED: AMBIEN PO PRN (08:11)
[2019-08-25] MEDS ORDERED: NORCO 10/325 TAB PO PRN (08:11)
--- NOTE | 2019-08-25 08:11 | DR.H&P ---
H&P - History & Physical for Day of: H&P Date: 08/24/19 - Chief Complaint Chief Complaint: sob, wheezing, knee pain - History of Present Illness History of Present Illness: 54 BF ER ADMISSION AFTER PRESENTING WITH CO INCREASED SOB AND INTRACTABLE RIGHT KNEE PAIN. PT WAS SEEN IN DR LACY OFFICE LAST WEEK FOR COPD WITH AB AND STARTED ON PO LEVAQUIN, PT REFUSED HOSPITALIZATION AT THAT TIME. PT STATES SHE CONTINUED TO FEEL WORSE, PRESENTED TO ER. PT HAS PMH OF HTN, COPD, MO, XAVI, OA. PT ADMITTED FOR TREATMENT OF ACUTE ILLNESS. - Past Medical History Past Medical History: Coronary Artery Disease, Hypertension, Dyslipidemia, Depression, Anxiety, COPD, Asthma, GERD, Arthritis Additional Medical History: FREQ UTI'S, HX OF ESOPHAGITIS W/DILATION OF ESOPHAGUS - Past Surgical History Surgical History: , Cholecystectomy, Joint Replacement, Ortho Surgery - Family History Family Medical History: Diabetes Mellitus, Cancer, Hypertension - Social History Does patient currently use any type of tobacco product: No Have you used tobacco products in the last 12 months: No Type of Tobacco Use: None Does any household member use tobacco: No Alcohol Use: None Drug Use: None - Medications Home Medications: ibuprofen [From Motrin] Allergy (Verified 08/24/19 12:11) meloxicam Allergy (Verified 08/24/19 12:11) CONTINUE taking the following medications hydrocodone-acetaminophen 1 tab PO TID PRN 08/24/19 [History] losartan-hydrochlorothiazide 1 tab PO DAILY 08/24/19 [History] methocarbamol 500 mg PO BID 08/24/19 [History] nifedipine 90 mg PO DAILY 08/24/19 [History] spironolactone 25 mg PO DAILY 08/24/19 [History] - Review of Systems Constitutional: Weakness Eyes: No Symptoms Reported ENT: No Symptoms Reported Respiratory: Cough, Shortness of Breath, SOB with Excertion, Wheezing Cardiovascular: Palpitations, Edema Gastrointestinal: Nausea Musculoskeletal: Leg Pain Skin: No Symptoms Reported Neurological: No Symptoms Reported - Physical Exam Vital Signs: Temperature 98.6 F Pulse Rate [Right Radial] 95 Pulse Rate 103 Respiratory Rate 20 Blood Pressure [Right Calf] 162/96 Blood Pressure [Right Arm] 127/56 Blood Pressure [Left Arm] 138/78 Blood Pressure 137/91 O2 Sat by Pulse Oximetry 97 Oriented: Normal Eyes: Normal Ear: Normal Nose: Normal Throat: Normal Respiratory: Diminished Throughout, Wheezes Throughout Cardiovascular: Tachycardia, Edema : Normal Palpation: Normal Tenderness: Normal Skin: Normal Musculoskeletal: Right, Knee, Swelling, Tender Psychiatric: Anxiety Affect: Anxious Speech Pattern: Clear, Appropriate - Assessment/Plan (1) COPD exacerbation Status: Acute Plan: ADMIT, IV ATBX THERAPY. RESP THERAPY, SUPPLEMENTAL O2. CXR ON ADMISSION, SERIAL CE AND EKG DUE TO SOB. BP MONITORING, VERIFY HOME MEDICATION (2) Effusion, right knee Status: Acute (3) Lower extremity edema Status: Acute (4) GERD (gastroesophageal reflux disease) Status: Chronic (5) Hypertension Status: Chronic - Allergies Allergies/Adverse Reactions: Allergies Allergy/AdvReac Type Severity Reaction Status Date / Time ibuprofen [From Motrin] Allergy Verified 08/24/19 12:11 meloxicam Allergy Verified 08/24/19 12:11
[2019-08-25] MEDS ORDERED: PATIENT'S HOME MEDICATION (Nifedipine 90 MG) PO SCH (09:00)
[2019-08-25] MEDS: PULMICORT NEB TX 0.5 MG NEB SCH ×2 (09:12→20:18)
[2019-08-25] MEDS: PROVENTIL NEB TX 0.083% 2.5MG/ 3ML NEB SCH ×2 (09:12→20:18)
[2019-08-25] MEDS: ALDACTONE TAB 25 MG PO SCH (09:23)
[2019-08-25] MEDS: HYZAAR 50/12.5 MG PO SCH (09:23)
[2019-08-25] MEDS: LEVAQUIN PREMIX IV 500 MG 500 MG/100 ML BAG IV SCH (09:23)
[2019-08-25] MEDS: K-DUR TAB 20 MEQ PO PRN (09:24)
[2019-08-25] MEDS: LASIX IVP SCH ×2 (09:24→20:18)
[2019-08-25] MEDS: NORCO 10/325 TAB PO PRN ×2 (09:41→21:46)
[2019-08-25] MEDS: SOLU-Medrol 125 MG VIAL IVP SCH ×3 (09:42→21:45)
[2019-08-25 10:40] LABS: BILIRUBIN,URINE NEGATIVE (NEGATIVE); BLOOD/HEMOGLOBIN,URINE 4+ (NEGATIVE); GLUCOSE, URINE NEGATIVE (NEGATIVE); KETONES,URINE NEGATIVE (NEGATIVE); LEUKOCYTE ESTERASE ,URINE 1+ (NEGATIVE); NITRITES,URINE NEGATIVE (NEGATIVE); PROTEIN,URINE 1+ (NEGATIVE); UROBILINOGEN,URINE NORMAL (NORMAL)
[2019-08-25 10:47] LABS: APPEARANCE,URINE CLEAR (CLEAR); COLOR,URINE YELLOW (YELLOW)
[2019-08-25 11:08] LABS: BACTERIA,URINE NEGATIVE /HPF (NEGATIVE); SQUAMOUS EPITHELIAL CELL,UR MANY /HPF (NEGATIVE)
[2019-08-25 11:14] LABS: MUCUS,URINE FEW /HPF (NEGATIVE)
[2019-08-25] MEDS: PROCARDIA XL PO SCH ×2 (14:35)
[2019-08-25] MEDS: PATIENT'S HOME MEDICATION (Methocarbamol 500 MG) PO SCH ×2 (14:36→21:45)
[2019-08-25] MEDS: LOVENOX INJ 40 MG SYR SC SCH (14:40)
[2019-08-25] MEDS ORDERED: SALINE 3% 15 ML NEB TX NEB ONE (16:37)
[2019-08-25] MEDS ORDERED: TYLENOL 325 MG TAB PO PRN (17:02)
[2019-08-25] MEDS ORDERED: TYLENOL 325 MG TAB PO ONE (17:05)
[2019-08-25] MEDS: AMBIEN PO PRN (21:45)
[2019-08-26] MEDS ORDERED: PEPCID TAB 20 MG ONE (05:09)
[2019-08-26] MEDS: PEPCID TAB 20 MG PO SCH ×3 (05:11→21:13)
[2019-08-26 06:15] LABS: BASOPHILS % (AUTO) 0.2 % (0.2-1.0); HEMATOCRIT 37.9 % (36.0-47.0); HEMOGLOBIN 11.8 g/dL (12.0-16.0); LYMPHOCYTES # (AUTO) 1.3 X10^3/uL (1.3-2.9); LYMPHOCYTES % (AUTO) 11.9 % (21.0-51.0); MEAN CORPUSCULAR HEMOGLOBIN 24.1 pg (27.0-34.0); MEAN CORPUSCULAR HGB CONC 31.1 g/dL (33.0-35.0); MEAN CORPUSCULAR VOLUME 77.5 fL (80.0-100.0); MEAN PLATELET VOLUME 8.2 fL (7.4-11.0); MONOCYTES # (AUTO) 0.4 x10^3/uL (0.3-0.8); MONOCYTES % (AUTO) 3.4 % (0.0-13.0); NEUTROPHILS # (AUTO) 9.5 x10^3/uL (2.2-4.8); NEUTROPHILS % (AUTO) 84.5 % (42.0-75.0); PLATELET COUNT 374 X10^3/uL (150.0-450.0); RED BLOOD COUNT 4.89 X10^6/uL (3.5-5.4); RED CELL DISTRIBUTION WIDTH 20.2 % (11.6-16.5); WHITE BLOOD COUNT 11.3 X10^3/uL (3.6-10.0)
[2019-08-26 06:24] LABS: ALANINE AMINOTRANSFERASE 15 Units/L (12-78); ALBUMIN 3.3 g/dL (3.4-5.0); ALKALINE PHOSPHATASE 92 Units/L (46-116); ASPARTATE AMINO TRANSFERASE 9 Units/L (15-37); BLOOD UREA NITROGEN 20 mg/dL (7-18); CALCIUM 8.8 mg/dL (8.5-10.1); CARBON DIOXIDE 29.3 mmol/L (21-32); CHLORIDE 96 mmol/L (98-107); COR CA(FOR HYPOALB) 9.4 mg/dL (8.5-10.1); COR NA(FOR HYPERGLY) 137 mmol/L (136-145); CREATININE 1.02 mg/dL (0.55-1.02); MAGNESIUM 2.2 mg/dL (1.7-2.9); SODIUM 133 mmol/L (136-145); TOTAL PROTEIN 9.1 g/dL (6.4-8.2); eGFR NON BLACK RACES > 60 (>60)
[2019-08-26 06:34] LABS: PLATELET MORPHOLOGY COMMENT NORMAL (NORMAL)
[2019-08-26 06:35] LABS: ANISOCYTOSIS 1+
[2019-08-26] MEDS: PATIENT'S HOME MEDICATION (Methocarbamol 500 MG) PO SCH ×2 (09:03→21:12)
[2019-08-26] MEDS: LEVAQUIN PREMIX IV 500 MG 500 MG/100 ML BAG IV SCH (09:04)
[2019-08-26] MEDS: PROCARDIA XL PO SCH ×2 (09:04)
[2019-08-26] MEDS: HYZAAR 50/12.5 MG PO SCH (09:04)
[2019-08-26] MEDS: LASIX IVP SCH (09:04)
[2019-08-26] MEDS: ALDACTONE TAB 25 MG PO SCH (09:05)
[2019-08-26] MEDS: LOVENOX INJ 40 MG SYR SC SCH (09:05)
[2019-08-26] MEDS: PULMICORT NEB TX 0.5 MG NEB SCH ×2 (09:34→20:37)
[2019-08-26] MEDS: PROVENTIL NEB TX 0.083% 2.5MG/ 3ML NEB SCH ×2 (09:34→20:37)
[2019-08-26] MEDS: NORCO 10/325 TAB PO PRN (13:46)
[2019-08-26] MEDS: LEVSIN/MAALOX/LIDOC VISC PO SCH ×3 (13:51→21:13)
[2019-08-26] MEDS: VOLTAREN 1 % GEL MULTI DOSE TUBE TOP SCH ×2 (15:26→21:14)
--- NOTE | 2019-08-26 16:19 | RAD ---
HISTORY: Bronchitis, shortness of breath Study: Single-view of the chest Comparison: August 24, 2019 Findings: The trachea is midline. The cardiac silhouette is unremarkable. Pulmonary vascular congestion is again noted. Increased perihilar markings are demonstrated as well. There is questionable right basilar atelectasis and/or infiltrate. IMPRESSION: 1. Pulmonary vascular congestion with increased perihilar markings and questionable right basilar atelectasis and/or infiltrate. Correlate clinically. Reported By:
[2019-08-26] MEDS: AMBIEN PO PRN (21:13)
[2019-08-27] MEDS: NORCO 10/325 TAB PO PRN ×2 (00:35→14:55)
[2019-08-27 05:21] LABS: BASOPHILS # (AUTO) 0.1 X10^3/uL (0.0-0.1); BASOPHILS % (AUTO) 1.1 % (0.2-1.0); EOSINOPHILS # (AUTO) 0.1 x10^3/uL (0.0-0.2); EOSINOPHILS % (AUTO) 0.5 % (0.9-2.9); HEMATOCRIT 37.4 % (36.0-47.0); HEMOGLOBIN 11.5 g/dL (12.0-16.0); LYMPHOCYTES # (AUTO) 3.5 X10^3/uL (1.3-2.9); LYMPHOCYTES % (AUTO) 29.9 % (21.0-51.0); MEAN CORPUSCULAR HEMOGLOBIN 24.2 pg (27.0-34.0); MEAN CORPUSCULAR HGB CONC 30.8 g/dL (33.0-35.0); MEAN CORPUSCULAR VOLUME 78.6 fL (80.0-100.0); MEAN PLATELET VOLUME 8.1 fL (7.4-11.0); MONOCYTES # (AUTO) 0.9 x10^3/uL (0.3-0.8); NEUTROPHILS % (AUTO) 60.5 % (42.0-75.0); PLATELET COUNT 375 X10^3/uL (150.0-450.0); RED BLOOD COUNT 4.76 X10^6/uL (3.5-5.4); RED CELL DISTRIBUTION WIDTH 19.8 % (11.6-16.5); WHITE BLOOD COUNT 11.6 X10^3/uL (3.6-10.0)
[2019-08-27] MEDS: VOLTAREN 1 % GEL MULTI DOSE TUBE TOP SCH ×3 (05:22→21:51)
[2019-08-27 05:27] LABS: ALANINE AMINOTRANSFERASE 17 Units/L (12-78); ALKALINE PHOSPHATASE 77 Units/L (46-116); ASPARTATE AMINO TRANSFERASE 7 Units/L (15-37); BLOOD UREA NITROGEN 23 mg/dL (7-18); CALCIUM 8.3 mg/dL (8.5-10.1); CARBON DIOXIDE 30.7 mmol/L (21-32); CHLORIDE 98 mmol/L (98-107); COR CA(FOR HYPOALB) 9.1 mg/dL (8.5-10.1); COR NA(FOR HYPERGLY) 140 mmol/L (136-145); CREATININE 0.94 mg/dL (0.55-1.02); SODIUM 135 mmol/L (136-145); TOTAL PROTEIN 7.9 g/dL (6.4-8.2); eGFR NON BLACK RACES > 60 (>60)
[2019-08-27 06:04] LABS: ANISOCYTOSIS SLIGHT; HYPOCHROMASIA SLIGHT; PLATELET MORPHOLOGY COMMENT NORMAL (NORMAL)
[2019-08-27] MEDS: PULMICORT NEB TX 0.5 MG NEB SCH ×2 (08:42→21:59)
[2019-08-27] MEDS: PROVENTIL NEB TX 0.083% 2.5MG/ 3ML NEB SCH ×2 (08:42→21:59)
[2019-08-27] MEDS: ALDACTONE TAB 25 MG PO SCH (08:55)
[2019-08-27] MEDS: PEPCID TAB 20 MG PO SCH ×2 (08:55→21:50)
[2019-08-27] MEDS: PROCARDIA XL PO SCH ×2 (08:55)
[2019-08-27] MEDS: LEVSIN/MAALOX/LIDOC VISC PO SCH ×4 (08:56→21:50)
[2019-08-27] MEDS: LASIX IVP SCH ×2 (08:56→21:48)
[2019-08-27] MEDS: LEVAQUIN PREMIX IV 500 MG 500 MG/100 ML BAG IV SCH (08:56)
[2019-08-27] MEDS: LOVENOX INJ 40 MG SYR SC SCH (08:57)
[2019-08-27] MEDS: PATIENT'S HOME MEDICATION (Methocarbamol 500 MG) PO SCH ×2 (09:04→21:51)
[2019-08-27] MEDS: HYZAAR 50/12.5 MG PO SCH (09:04)
[2019-08-28] MEDS: NORCO 10/325 TAB PO PRN ×2 (04:06→22:27)
[2019-08-28] MEDS: VOLTAREN 1 % GEL MULTI DOSE TUBE TOP SCH ×3 (05:27→22:28)
[2019-08-28 07:26] LABS: BASOPHILS # (AUTO) 0.1 X10^3/uL (0.0-0.1); BASOPHILS % (AUTO) 0.9 % (0.2-1.0); EOSINOPHILS # (AUTO) 0.1 x10^3/uL (0.0-0.2); EOSINOPHILS % (AUTO) 1.1 % (0.9-2.9); HEMATOCRIT 39.6 % (36.0-47.0); HEMOGLOBIN 12.6 g/dL (12.0-16.0); LYMPHOCYTES # (AUTO) 3.9 X10^3/uL (1.3-2.9); LYMPHOCYTES % (AUTO) 37.2 % (21.0-51.0); MEAN CORPUSCULAR HEMOGLOBIN 24.5 pg (27.0-34.0); MEAN CORPUSCULAR HGB CONC 31.9 g/dL (33.0-35.0); MEAN CORPUSCULAR VOLUME 76.8 fL (80.0-100.0); MEAN PLATELET VOLUME 7.7 fL (7.4-11.0); MONOCYTES # (AUTO) 0.8 x10^3/uL (0.3-0.8); MONOCYTES % (AUTO) 7.4 % (0.0-13.0); NEUTROPHILS # (AUTO) 5.6 x10^3/uL (2.2-4.8); NEUTROPHILS % (AUTO) 53.4 % (42.0-75.0); PLATELET COUNT 394 X10^3/uL (150.0-450.0); RED BLOOD COUNT 5.16 X10^6/uL (3.5-5.4); RED CELL DISTRIBUTION WIDTH 19.9 % (11.6-16.5); WHITE BLOOD COUNT 10.4 X10^3/uL (3.6-10.0)
[2019-08-28 07:29] LABS: PLATELET MORPHOLOGY COMMENT NORMAL (NORMAL)
[2019-08-28 07:32] LABS: ANISOCYTOSIS SLIGHT; HYPOCHROMASIA SLIGHT
[2019-08-28 07:38] LABS: ALANINE AMINOTRANSFERASE 15 Units/L (12-78); ALBUMIN 3.3 g/dL (3.4-5.0); ALKALINE PHOSPHATASE 84 Units/L (46-116); ASPARTATE AMINO TRANSFERASE 13 Units/L (15-37); BLOOD UREA NITROGEN 23 mg/dL (7-18); CARBON DIOXIDE 37.2 mmol/L (21-32); CHLORIDE 94 mmol/L (98-107); COR CA(FOR HYPOALB) 9.6 mg/dL (8.5-10.1); COR NA(FOR HYPERGLY) 137 mmol/L (136-145); CREATININE 1.07 mg/dL (0.55-1.02); SODIUM 137 mmol/L (136-145); TOTAL PROTEIN 8.6 g/dL (6.4-8.2); eGFR NON BLACK RACES 57 (>60)
[2019-08-28] MEDS: ALDACTONE TAB 25 MG PO SCH (09:12)
[2019-08-28] MEDS: HYZAAR 50/12.5 MG PO SCH (09:12)
[2019-08-28] MEDS: LEVSIN/MAALOX/LIDOC VISC PO SCH ×5 (09:13→22:29)
[2019-08-28] MEDS: LASIX IVP SCH (09:13)
[2019-08-28] MEDS: LEVAQUIN PREMIX IV 500 MG 500 MG/100 ML BAG IV SCH (09:13)
[2019-08-28] MEDS: PROVENTIL NEB TX 0.083% 2.5MG/ 3ML NEB SCH ×2 (09:19→21:18)
[2019-08-28] MEDS: PULMICORT NEB TX 0.5 MG NEB SCH ×2 (09:19→21:18)
[2019-08-28] MEDS: LOVENOX INJ 40 MG SYR SC SCH (09:20)
[2019-08-28] MEDS: PROCARDIA XL PO SCH ×2 (09:21)
[2019-08-28] MEDS: PEPCID TAB 20 MG PO SCH ×2 (09:21→22:27)
[2019-08-28] MEDS: PATIENT'S HOME MEDICATION (Methocarbamol 500 MG) PO SCH ×2 (09:21→22:28)
--- NOTE | 2019-08-28 12:25 | PCM.PROG ---
Progress Note Progress Note for Day of Date of Exam: 08/28/19 Subjective Subjective: Patient seen this AM, reports feeling better. SOB has improved but still gets worse with exertion. She has been ambulating to the bathroom. Denies chest pain. Reports improvement in leg edema. She was on Lasix 40 mg BID, has been urinating a lot. Past Medical Family Social History Past Med/Fam/Surg Hx: No changes since H&P Allergies: Allergies ibuprofen [From Motrin] Allergy (Verified 08/24/19 12:11) meloxicam Allergy (Verified 08/24/19 12:11) Review of Systems ROS: No change since H&P Vital Signs and I&O's Vital Signs: Temperature 97.9 F Pulse Rate [Right Radial] 100 Pulse Rate 103 Respiratory Rate 22 Blood Pressure [Right Calf] 128/67 Blood Pressure [Right Arm] 139/77 Blood Pressure [Left Arm] 111/60 Blood Pressure 137/91 O2 Sat by Pulse Oximetry 96 Intake and Output: Intake & Output 08/25/19 08/26/19 08/27/19 08/28/19 23:59 23:59 23:59 23:59 Intake Total 2200 / 2200 2700 / 2700 2240 / 2240 270 / 270 Output Total 1000 / 1000 Balance 2200 / 2200 2700 / 2700 1240 / 1240 270 / 270 Physical Exam Oriented: Normal Eyes: Normal Ear: Normal Nose: Normal Throat: Normal Respiratory: Diminished Cardiovascular: Tachycardia and Edema Tenderness: Normal Skin: Normal Musculoskeletal: Right, Knee, Swelling and Tender Psychiatric: Normal Mood Description: Calm Affect: Normal Speech Pattern: Clear and Appropriate Laboratory and Diagnostics Result Diagrams: 08/28/19 07:18 08/28/19 07:18 Labs: 08/25/19 17:15 Sputum - Expectorated Sputum Sputum Culture - Final 08/25/19 17:15 Sputum - Expectorated Sputum - Final Laboratory WBC 10.4 X10^3/uL (3.6-10.0) H 08/28/19 07:18 RBC 5.16 X10^6/uL (3.5-5.4) 08/28/19 07:18 Hgb 12.6 g/dL (12.0-16.0) 08/28/19 07:18 Hct 39.6 % (36.0-47.0) 08/28/19 07:18 MCV 76.8 fL (80.0-100.0) L 08/28/19 07:18 MCH 24.5 pg (27.0-34.0) L 08/28/19 07:18 MCHC 31.9 g/dL (33.0-35.0) L 08/28/19 07:18 RDW 19.9 % (11.6-16.5) H 08/28/19 07:18 Plt Count 394 X10^3/uL (150.0-450.0) 08/28/19 07:18 Plt Count Comment Adequate (ADEQUATE) 08/28/19 07:18 MPV 7.7 fL (7.4-11.0) 08/28/19 07:18 Neut % (Auto) 53.4 % (42.0-75.0) 08/28/19 07:18 Lymph % (Auto) 37.2 % (21.0-51.0) 08/28/19 07:18 [place] % (Auto) 7.4 % (0.0-13.0) 08/28/19 07:18 Eos % (Auto) 1.1 % (0.9-2.9) 08/28/19 07:18 Baso % (Auto) 0.9 % (0.2-1.0) 08/28/19 07:18 Neut # (Auto) 5.6 x10^3/uL (2.2-4.8) H 08/28/19 07:18 Lymph # (Auto) 3.9 X10^3/uL (1.3-2.9) H 08/28/19 07:18 [place] # (Auto) 0.8 x10^3/uL (0.3-0.8) 08/28/19 07:18 Eos # (Auto) 0.1 x10^3/uL (0.0-0.2) 08/28/19 07:18 Baso # (Auto) 0.1 X10^3/uL (0.0-0.1) 08/28/19 07:18 Absolute Nucleated RBC 0.0 /100WBC 08/28/19 07:18 Plt Morphology Comment Normal (NORMAL) 08/28/19 07:18 RBC Morphology Abnormal (NORMAL) A 08/28/19 07:18 Hypochromasia Slight A 08/28/19 07:18 Anisocytosis Slight A 08/28/19 07:18 D-Dimer 378 ng/mL (0-400) 08/24/19 13:00 Sodium 137 mmol/L (136-145) 08/28/19 07:18 Corrected Sodium 137 mmol/L (136-145) 08/28/19 07:18 Potassium 4.3 mmol/L (3.5-5.1) 08/28/19 07:18 Chloride 94 mmol/L (98-107) L 08/28/19 07:18 Carbon Dioxide 37.2 mmol/L (21-32) H 08/28/19 07:18 BUN 23 mg/dL (7-18) H 08/28/19 07:18 Creatinine 1.07 mg/dL (0.55-1.02) H 08/28/19 07:18 Est GFR (MDRD) Af Amer > 60 (>60) 08/28/19 07:18 Est GFR (MDRD) Non-Af 57 (>60) L 08/28/19 07:18 Glucose 120 mg/dL (65-99) H 08/28/19 07:18 Hemoglobin A1c 6.6 % 08/27/19 04:53 Uric Acid 5.9 mg/dL (2.6-6.0) 08/26/19 05:04 Calcium 9.0 mg/dL (8.5-10.1) 08/28/19 07:18 Corrected Calcium 9.6 mg/dL (8.5-10.1) 08/28/19 07:18 Magnesium 2.2 mg/dL (1.7-2.9) 08/26/19 05:04 Total Bilirubin 0.20 mg/dL (0.2-1.0) 08/28/19 07:18 AST 13 Units/L (15-37) L 08/28/19 07:18 ALT 15 Units/L (12-78) 08/28/19 07:18 Alkaline Phosphatase 84 Units/L (46-116) 08/28/19 07:18 Creatine Kinase 178 Units/L (26-192) 08/25/19 04:21 CK-MB (CK-2) < 1.0 ng/mL (0-4.0) 08/25/19 04:21 CK/CKMB % Calc 0.6 % (<4) 08/25/19 04:21 Troponin I < 0.02 ng/mL (0-1.5) 08/25/19 04:21 B-Natriuretic Peptide 11.3 pg/mL (0-79) 08/24/19 13:00 Total Protein 8.6 g/dL (6.4-8.2) H 08/28/19 07:18 Albumin 3.3 g/dL (3.4-5.0) L 08/28/19 07:18 Globulin 5.3 g/dL (2.5-4.5) H 08/28/19 07:18 Albumin/Globulin Ratio 0.6 Ratio (1.1-2.1) L 08/28/19 07:18 Specimen Type Clean catch urine 08/25/19 09:46 Urine Color Yellow (YELLOW) 08/25/19 09:46 Urine Appearance Clear (CLEAR) 08/25/19 09:46 Urine pH 5.0 (5.0 - 8.0) 08/25/19 09:46 Ur Specific [place] 1.020 (1.000-1.030) 08/25/19 09:46 Urine Protein 1+ (NEGATIVE) 08/25/19 09:46 Urine Glucose (UA) Negative (NEGATIVE) 08/25/19 09:46 Urine Ketones Negative (NEGATIVE) 08/25/19 09:46 Urine Occult Blood 4+ (NEGATIVE) 08/25/19 09:46 Urine Nitrite Negative (NEGATIVE) 08/25/19 09:46 Urine Bilirubin Negative (NEGATIVE) 08/25/19 09:46 Urine Urobilinogen Normal (NORMAL) 08/25/19 09:46 Ur Leukocyte Esterase 1+ (NEGATIVE) 08/25/19 09:46 Urine RBC 3-5 /HPF (0-3) A 08/25/19 09:46 Urine WBC 0-2 /HPF (0-5) 08/25/19 09:46 Ur Squamous Epith Cells Many /HPF (NEGATIVE) 08/25/19 09:46 Urine Bacteria Negative /HPF (NEGATIVE) 08/25/19 09:46 Urine Mucus Few /HPF (NEGATIVE) 08/25/19 09:46 Ur Culture Indicated? No/not indicated 08/25/19 09:46 Plan (1) COPD exacerbation: Status: Inactive Narrative Support Text: CXR: Pulmonary vascular congestion with increased perihilar markings and questionable right basilar atelectasis and/or infiltrate. Plan: Continue levaquin, duonebs prn, pulmicort and O2 as needed (2) Effusion, right knee: Status: Acute Plan: XR: severe degenerative changes, large effusion. Outpatient Ortho follow up. Continue PT as tolerated (3) CHF exacerbation: Status: Acute Plan: CXR consistent with pulmonary vascular congestion. On Lasix 40 mg BID, Cr slightly up and Bicarb, Will decrease to 40 mg once a day. Monitor daily labs. Echo: EF 54%, normal diastolic function. (4) Lower extremity edema: Status: Inactive Plan: Improved with Lasix (5) GERD (gastroesophageal reflux disease): Status: Chronic (6) Hypertension: Status: Chronic (7) Diabetes: Status: Acute Plan: A1C 6.6, glucose elevated with steroids. Not on steroids now, BG 120 this AM
[2019-08-29 05:29] LABS: BASOPHILS # (AUTO) 0.1 X10^3/uL (0.0-0.1); BASOPHILS % (AUTO) 0.8 % (0.2-1.0); EOSINOPHILS # (AUTO) 0.1 x10^3/uL (0.0-0.2); EOSINOPHILS % (AUTO) 0.7 % (0.9-2.9); HEMATOCRIT 38.2 % (36.0-47.0); LYMPHOCYTES # (AUTO) 3.6 X10^3/uL (1.3-2.9); LYMPHOCYTES % (AUTO) 31.3 % (21.0-51.0); MEAN CORPUSCULAR HEMOGLOBIN 24.2 pg (27.0-34.0); MEAN CORPUSCULAR HGB CONC 31.5 g/dL (33.0-35.0); MEAN PLATELET VOLUME 8.1 fL (7.4-11.0); MONOCYTES % (AUTO) 8.4 % (0.0-13.0); NEUTROPHILS # (AUTO) 6.7 x10^3/uL (2.2-4.8); NEUTROPHILS % (AUTO) 58.8 % (42.0-75.0); PLATELET COUNT 401 X10^3/uL (150.0-450.0); RED BLOOD COUNT 4.96 X10^6/uL (3.5-5.4); WHITE BLOOD COUNT 11.4 X10^3/uL (3.6-10.0)
[2019-08-29] MEDS: VOLTAREN 1 % GEL MULTI DOSE TUBE TOP SCH ×3 (05:41→22:00)
[2019-08-29 05:45] LABS: ALANINE AMINOTRANSFERASE 14 Units/L (12-78); ALKALINE PHOSPHATASE 83 Units/L (46-116); ASPARTATE AMINO TRANSFERASE 10 Units/L (15-37); BLOOD UREA NITROGEN 24 mg/dL (7-18); CALCIUM 8.8 mg/dL (8.5-10.1); CHLORIDE 93 mmol/L (98-107); COR CA(FOR HYPOALB) 9.6 mg/dL (8.5-10.1); COR NA(FOR HYPERGLY) 134 mmol/L (136-145); CREATININE 1.08 mg/dL (0.55-1.02); SODIUM 133 mmol/L (136-145); TOTAL PROTEIN 8.1 g/dL (6.4-8.2); eGFR NON BLACK RACES 57 (>60)
[2019-08-29 05:57] LABS: ANISOCYTOSIS SLIGHT; HYPOCHROMASIA SLIGHT; PLATELET MORPHOLOGY COMMENT NORMAL (NORMAL)
[2019-08-29] MEDS: PULMICORT NEB TX 0.5 MG NEB SCH ×2 (09:30→20:41)
[2019-08-29] MEDS: PROVENTIL NEB TX 0.083% 2.5MG/ 3ML NEB SCH ×2 (09:30→20:41)
[2019-08-29] MEDS: LEVAQUIN PREMIX IV 500 MG 500 MG/100 ML BAG IV SCH (09:37)
[2019-08-29] MEDS: LASIX IVP SCH (09:37)
[2019-08-29] MEDS: K-DUR TAB 20 MEQ PO PRN (09:38)
[2019-08-29] MEDS: PROCARDIA XL PO SCH ×2 (09:38→09:39)
[2019-08-29] MEDS: HYZAAR 50/12.5 MG PO SCH (09:38)
[2019-08-29] MEDS: PEPCID TAB 20 MG PO SCH ×2 (09:39→20:23)
[2019-08-29] MEDS: PATIENT'S HOME MEDICATION (Methocarbamol 500 MG) PO SCH ×2 (09:39→20:23)
[2019-08-29] MEDS: ALDACTONE TAB 25 MG PO SCH (09:39)
[2019-08-29] MEDS: LOVENOX INJ 40 MG SYR SC SCH (09:43)
[2019-08-29] MEDS ORDERED: NS 250 ML IV 250 ML IV ONE (09:48)
[2019-08-29] MEDS ORDERED: ZOFRAN INJ 4 MG VIAL ONE (10:44)
[2019-08-29] MEDS: ZOFRAN INJ 4 MG VIAL IVP PRN (10:49)
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
[2019-08-29] MEDS: NORCO 10/325 TAB PO PRN (17:13)
[2019-08-29] MEDS: FERROUS GLUCONATE PO SCH (17:13)
[2019-08-29] MEDS ORDERED: HEPARIN SODIUM INJ 5000 UNITS SC SCH (21:00)
[2019-08-30 06:35] LABS: BASOPHILS # (AUTO) 0.1 X10^3/uL (0.0-0.1); BASOPHILS % (AUTO) 0.9 % (0.2-1.0); EOSINOPHILS # (AUTO) 0.2 x10^3/uL (0.0-0.2); EOSINOPHILS % (AUTO) 1.3 % (0.9-2.9); HEMATOCRIT 37.3 % (36.0-47.0); LYMPHOCYTES # (AUTO) 4.8 X10^3/uL (1.3-2.9); LYMPHOCYTES % (AUTO) 28.3 % (21.0-51.0); MEAN CORPUSCULAR HEMOGLOBIN 24.7 pg (27.0-34.0); MEAN CORPUSCULAR HGB CONC 32.2 g/dL (33.0-35.0); MEAN CORPUSCULAR VOLUME 76.6 fL (80.0-100.0); MEAN PLATELET VOLUME 8.4 fL (7.4-11.0); MONOCYTES # (AUTO) 1.3 x10^3/uL (0.3-0.8); MONOCYTES % (AUTO) 7.6 % (0.0-13.0); NEUTROPHILS # (AUTO) 10.5 x10^3/uL (2.2-4.8); NEUTROPHILS % (AUTO) 61.9 % (42.0-75.0); PLATELET COUNT 376 X10^3/uL (150.0-450.0); RED BLOOD COUNT 4.86 X10^6/uL (3.5-5.4); RED CELL DISTRIBUTION WIDTH 19.6 % (11.6-16.5); WHITE BLOOD COUNT 16.9 X10^3/uL (3.6-10.0)
[2019-08-30] MEDS: VOLTAREN 1 % GEL MULTI DOSE TUBE TOP SCH (06:37)
[2019-08-30] MEDS: FERROUS GLUCONATE PO SCH (06:38)
[2019-08-30 06:52] LABS: ALANINE AMINOTRANSFERASE 16 Units/L (12-78); ALBUMIN 3.1 g/dL (3.4-5.0); ALKALINE PHOSPHATASE 83 Units/L (46-116); ASPARTATE AMINO TRANSFERASE 10 Units/L (15-37); BLOOD UREA NITROGEN 24 mg/dL (7-18); CALCIUM 8.7 mg/dL (8.5-10.1); CARBON DIOXIDE 34.2 mmol/L (21-32); CHLORIDE 93 mmol/L (98-107); COR CA(FOR HYPOALB) 9.4 mg/dL (8.5-10.1); COR NA(FOR HYPERGLY) 133 mmol/L (136-145); CREATININE 1.03 mg/dL (0.55-1.02); MAGNESIUM 1.9 mg/dL (1.7-2.9); SODIUM 133 mmol/L (136-145); TOTAL PROTEIN 8.3 g/dL (6.4-8.2); eGFR NON BLACK RACES 60 (>60)
[2019-08-30 07:03] LABS: GIANT PLATELET RARE; PLATELET MORPHOLOGY COMMENT NORMAL (NORMAL)
[2019-08-30] MEDS: PULMICORT NEB TX 0.5 MG NEB SCH (08:52)
[2019-08-30] MEDS: PROVENTIL NEB TX 0.083% 2.5MG/ 3ML NEB SCH (08:52)
[2019-08-30] MEDS: PROCARDIA XL PO SCH ×2 (09:01)
[2019-08-30] MEDS: HYZAAR 50/12.5 MG PO SCH (09:01)
[2019-08-30] MEDS: LEVAQUIN PREMIX IV 500 MG 500 MG/100 ML BAG IV SCH (09:01)
[2019-08-30] MEDS: ALDACTONE TAB 25 MG PO SCH (09:01)
[2019-08-30] MEDS: PEPCID TAB 20 MG PO SCH (09:02)
[2019-08-30] MEDS: PATIENT'S HOME MEDICATION (Methocarbamol 500 MG) PO SCH (09:02)
[2019-08-30] MEDS: LASIX IVP SCH (09:05)
--- NOTE | 2019-08-30 10:32 | RAD ---
History: Shortness of breath Study: Upright portable AP chest Comparison: August 28 2019 Findings: The heart size is normal. There is mild vascular congestion. There is no edema or effusion. Impression: Mild vascular congestion Reported By:
[2019-08-30] MEDS: ZOFRAN INJ 4 MG VIAL IVP PRN (10:34)
[2019-08-30 10:43] VITALS: BP 132/58
== END 2019-08-30 11:40 | disposition home or self-care (01) | DRG 192 ==
LOC: ER 12:10 → MED/SURG 12:10
PROVIDERS: ADMIT Internal Medicine; ATTEND Internal Medicine
CPT/HCPCS: 36415; 71010; 71045; 73560; 80053; 81001; 82550; 82553; 82607; 82728; 82746; 83036; 83540; 83735; 83880; 84466; 84484; 84550; 85025; 85378; 87070; 87086; 87205; 93005; 93306; 94640; 94760; 96365; 96372; 97162; 97165; 99284; A4222; G0378; J1650; J1885; J1940; J1956; J2405; J2930; J3475; J3490; J7050; J7613; J7626

== ENCOUNTER 2019-12-03 09:43 | Inpatient (IN) ==
[2019-12-03 13:46] VITALS: BMI 68.5
[2019-12-03] MEDS ORDERED: XOPENEX 1.25 MG/3 ML NEBULE NEB SCH (14:00)
--- NOTE | 2019-12-03 14:00 | DR.H&P ---
H&P - History & Physical for Day of: H&P Date: 12/03/19 - Chief Complaint Chief Complaint: SOB, CCC, WHEEZING - History of Present Illness History of Present Illness: PT SI 54 BF DIRECT ADMIT FROM DR LACY OFFICE WITH CO AB WITH COPD FAILED ON LEVAQUIN OUTPT. PT HAD IM DECADRON AND PO LEVAQUIN X 3 DAYS WITHOUT IMPRPOVEMENT ALONG WITH DUO NEBS AT HOME. PT HAD PMH OF COPD, CHF, HTN, OA, MO. PT ADMITTED FOR TREATMENT OF ACUTE ON CHRONIC I LLNESS. - Past Medical History Past Medical History: Coronary Artery Disease, Hypertension, Dyslipidemia, Depression, Anxiety, COPD, Asthma, GERD, Arthritis Additional Medical History: FREQ UTI'S, HX OF ESOPHAGITIS W/DILATION OF ESOPHAGUS - Past Surgical History Surgical History: , Cholecystectomy, Joint Replacement, Ortho Surgery - Family History Family Medical History: Diabetes Mellitus, Cancer, Hypertension - Social History Does patient currently use any type of tobacco product: No Have you used tobacco products in the last 12 months: No Type of Tobacco Use: None Does any household member use tobacco: No Alcohol Use: None - Medications Home Medications: ibuprofen [From Motrin] Allergy (Verified 08/24/19 12:11) meloxicam Allergy (Verified 08/24/19 12:11) - Review of Systems Constitutional: Weakness Eyes: No Symptoms Reported ENT: No Symptoms Reported Respiratory: Cough, Shortness of Breath, SOB with Excertion, Wheezing Cardiovascular: Edema Gastrointestinal: Nausea Genitourinary: No Symptoms Reported Musculoskeletal: Back Pain, Leg Pain Skin: No Symptoms Reported Neurological: No Symptoms Reported - Physical Exam Vital Signs: Temperature 97.6 F Pulse Rate [Right Brachial] 99 Respiratory Rate 20 Blood Pressure [Right Calf] 128/67 Blood Pressure [Right Arm] 170/90 O2 Sat by Pulse Oximetry 96 Oriented: Normal Ear: Normal Nose: Normal Throat: Dry Respiratory: Wheezes Throughout, RLL Diminished, LLL Diminished Cardiovascular: Tachycardia, Edema : Normal Auscultation: Bowel Sounds: Normal Palpation: Normal Tenderness: Normal Skin: Normal Musculoskeletal: Right, Left, Knee, Back:Lumbar Psychiatric: Anxiety Affect: Anxious Speech Pattern: Clear, Appropriate - Assessment/Plan (1) COPD (chronic obstructive pulmonary disease) with acute bronchitis Status: Acute Plan: ADMIT, RESP CONSULT. BLOOD AND SPUTUM CULTURE ON ADMISSION. ABG AND CXR ON ADMISSION. VERIFY AND RESUME HOME MEDICATION. IV LASIX WITH POTASSIUM REPLACEMENT, STRICT I&O. CARDIAC MONITORING. BP MONITORING, SUPPLEMENTAL O2 (2) CHF (congestive heart failure) Status: Acute (3) GERD (gastroesophageal reflux disease) Qualifiers: Status: Chronic (4) Hypertension Qualifiers: Status: Chronic - Allergies Allergies/Adverse Reactions: Allergies Allergy/AdvReac Type Severity Reaction Status Date / Time ibuprofen [From Motrin] Allergy Verified 08/24/19 12:11 meloxicam Allergy Verified 08/24/19 12:11
[2019-12-03] MEDS: LEVAQUIN PREMIX IV 500 MG 500 MG/100 ML BAG IV SCH (14:26)
[2019-12-03] MEDS: SOLU-Medrol 125 MG VIAL IVP SCH ×2 (14:26→21:05)
[2019-12-03] MEDS: K-DUR TAB 20 MEQ PO SCH ×2 (14:26→21:04)
[2019-12-03] MEDS: NS 1000 ML 1,000 ML IV SCH (14:26)
[2019-12-03] MEDS: LASIX IVP SCH ×2 (14:26→21:05)
[2019-12-03 14:39] LABS: BASOPHILS # (AUTO) 0.1 X10^3/uL (0.0-0.1); BASOPHILS % (AUTO) 1.2 % (0.2-1.0); EOSINOPHILS # (AUTO) 0.1 x10^3/uL (0.0-0.2); EOSINOPHILS % (AUTO) 1.7 % (0.9-2.9); HEMATOCRIT 36.8 % (36.0-47.0); HEMOGLOBIN 11.4 g/dL (12.0-16.0); LYMPHOCYTES # (AUTO) 2.5 X10^3/uL (1.3-2.9); LYMPHOCYTES % (AUTO) 34.1 % (21.0-51.0); MEAN CORPUSCULAR HEMOGLOBIN 24.4 pg (27.0-34.0); MEAN CORPUSCULAR HGB CONC 31.1 g/dL (33.0-35.0); MEAN CORPUSCULAR VOLUME 78.5 fL (80.0-100.0); MEAN PLATELET VOLUME 7.8 fL (7.4-11.0); MONOCYTES # (AUTO) 0.5 x10^3/uL (0.3-0.8); MONOCYTES % (AUTO) 7.3 % (0.0-13.0); NEUTROPHILS % (AUTO) 55.7 % (42.0-75.0); PLATELET COUNT 296 X10^3/uL (150.0-450.0); RED BLOOD COUNT 4.69 X10^6/uL (3.5-5.4); RED CELL DISTRIBUTION WIDTH 20.4 % (11.6-16.5); WHITE BLOOD COUNT 7.3 X10^3/uL (3.6-10.0)
[2019-12-03 14:52] LABS: ALANINE AMINOTRANSFERASE 17 Units/L (12-78); ALBUMIN 3.2 g/dL (3.4-5.0); ALKALINE PHOSPHATASE 87 Units/L (46-116); ASPARTATE AMINO TRANSFERASE 10 Units/L (15-37); BLOOD UREA NITROGEN 10 mg/dL (7-18); CALCIUM 8.4 mg/dL (8.5-10.1); CARBON DIOXIDE 34.6 mmol/L (21-32); CHLORIDE 101 mmol/L (98-107); CREATININE 0.89 mg/dL (0.55-1.02); MAGNESIUM 1.9 mg/dL (1.7-2.9); SODIUM 140 mmol/L (136-145); TOTAL PROTEIN 8.3 g/dL (6.4-8.2); eGFR NON BLACK RACES > 60 (>60)
--- NOTE | 2019-12-03 14:59 | RAD ---
HISTORYCOPD EXACERBATION, ACUTE BRONCHITISSTUDYCHEST, PA/LAT ADULTCOMPARISONPortable chest 30 August 2019FINDINGSThe trachea is midline. The cardiac silhouette is unremarkable there is mild central vascular congestion but there is no cardiomegaly interstitial or alveolar edema or pleural fluid. Findings are very similar to what was seen on the prior chest film August 30, 2019.. The lungs are clear without focal infiltrate or effusion. The bony thorax is unremarkable.IMPRESSIONMild central vascular congestion but no evidence of CHF pneumonia or interstitial edema.Electronically signed by: JOSE LUIS BRANNON (Dec 03, 2019 14:58:31)
[2019-12-03 15:10] LABS: ANISOCYTOSIS 1+; PLATELET MORPHOLOGY COMMENT NORMAL (NORMAL)
[2019-12-03 16:09] LABS: ABG BASE EXCESS 9.7 mmol/L (-2.0-2.0)
[2019-12-03 16:10] LABS: ABG HCO3 35.8 mmol/L (22-26)
[2019-12-03] MEDS ORDERED: SALINE 3% 15 ML NEB TX NEB ONE (16:58)
[2019-12-03] MEDS: PULMICORT NEB TX 0.5 MG NEB SCH ×2 (17:00→20:36)
[2019-12-03] MEDS: XOPENEX 1.25 MG/3 ML NEBULE NEB SCH (17:07)
[2019-12-03 20:26] LABS: BILIRUBIN,URINE NEGATIVE (NEGATIVE); BLOOD/HEMOGLOBIN,URINE 5+ (NEGATIVE); GLUCOSE, URINE NEGATIVE (NEGATIVE); KETONES,URINE NEGATIVE (NEGATIVE); LEUKOCYTE ESTERASE ,URINE NEGATIVE (NEGATIVE); NITRITES,URINE NEGATIVE (NEGATIVE); PROTEIN,URINE NEGATIVE (NEGATIVE); UROBILINOGEN,URINE NORMAL (NORMAL)
[2019-12-03 20:32] LABS: APPEARANCE,URINE CLEAR (CLEAR); COLOR,URINE YELLOW (YELLOW)
[2019-12-03 20:33] LABS: BACTERIA,URINE NEGATIVE /HPF (NEGATIVE); SQUAMOUS EPITHELIAL CELL,UR FEW /HPF (NEGATIVE)
[2019-12-03] MEDS: COLACE CAP 100 MG PO SCH (21:05)
[2019-12-03] MEDS: NORCO 10/325 TAB PO PRN (22:22)
[2019-12-04] MEDS: XOPENEX 1.25 MG/3 ML NEBULE NEB SCH ×4 (00:20→17:22)
[2019-12-04] MEDS: NS 1000 ML 1,000 ML IV SCH ×3 (03:18→21:33)
[2019-12-04] MEDS: SOLU-Medrol 125 MG VIAL IVP SCH (06:19)
[2019-12-04 06:48] LABS: ALANINE AMINOTRANSFERASE 18 Units/L (12-78); ALBUMIN 3.4 g/dL (3.4-5.0); ALKALINE PHOSPHATASE 98 Units/L (46-116); ASPARTATE AMINO TRANSFERASE 10 Units/L (15-37); BLOOD UREA NITROGEN 13 mg/dL (7-18); CALCIUM 9.2 mg/dL (8.5-10.1); CARBON DIOXIDE 30.1 mmol/L (21-32); CHLORIDE 99 mmol/L (98-107); COR NA(FOR HYPERGLY) 139 mmol/L (136-145); CREATININE 0.97 mg/dL (0.55-1.02); SODIUM 137 mmol/L (136-145); TOTAL PROTEIN 9.3 g/dL (6.4-8.2); eGFR NON BLACK RACES > 60 (>60)
[2019-12-04 07:14] LABS: MEAN PLATELET VOLUME 8.4 fL (7.4-11.0); MONOCYTES # (AUTO) 0.2 x10^3/uL (0.3-0.8)
[2019-12-04 07:29] LABS: BASOPHILS % (AUTO) 0.4 % (0.2-1.0); HEMATOCRIT 37.4 % (36.0-47.0); HEMOGLOBIN 12.2 g/dL (12.0-16.0); LYMPHOCYTES # (AUTO) 1.6 X10^3/uL (1.3-2.9); LYMPHOCYTES % (AUTO) 18.1 % (21.0-51.0); MEAN CORPUSCULAR HEMOGLOBIN 25.5 pg (27.0-34.0); MEAN CORPUSCULAR HGB CONC 32.7 g/dL (33.0-35.0); MEAN CORPUSCULAR VOLUME 78.1 fL (80.0-100.0); MONOCYTES % (AUTO) 2.5 % (0.0-13.0); NEUTROPHILS # (AUTO) 7.1 x10^3/uL (2.2-4.8); PLATELET COUNT 301 X10^3/uL (150.0-450.0); RED BLOOD COUNT 4.78 X10^6/uL (3.5-5.4); RED CELL DISTRIBUTION WIDTH 19.8 % (11.6-16.5)
[2019-12-04 07:45] LABS: ANISOCYTOSIS SLIGHT; GIANT PLATELET FEW; PLATELET MORPHOLOGY COMMENT ABNORMAL (NORMAL)
[2019-12-04] MEDS: PULMICORT NEB TX 0.5 MG NEB SCH ×2 (08:38→20:47)
[2019-12-04] MEDS: LASIX IVP SCH ×2 (08:53→21:35)
[2019-12-04] MEDS: K-DUR TAB 20 MEQ PO SCH ×2 (08:53→21:37)
[2019-12-04] MEDS: LEVAQUIN PREMIX IV 500 MG 500 MG/100 ML BAG IV SCH (08:53)
[2019-12-04] MEDS: COLACE CAP 100 MG PO SCH (21:36)
[2019-12-05] MEDS: XOPENEX 1.25 MG/3 ML NEBULE NEB SCH ×4 (00:15→17:11)
[2019-12-05 06:10] LABS: BASOPHILS % (AUTO) 0.4 % (0.2-1.0); EOSINOPHILS % (AUTO) 0.1 % (0.9-2.9); HEMATOCRIT 37.5 % (36.0-47.0); HEMOGLOBIN 11.6 g/dL (12.0-16.0); LYMPHOCYTES # (AUTO) 3.2 X10^3/uL (1.3-2.9); MEAN CORPUSCULAR HEMOGLOBIN 24.1 pg (27.0-34.0); MEAN CORPUSCULAR HGB CONC 30.9 g/dL (33.0-35.0); MEAN CORPUSCULAR VOLUME 78.1 fL (80.0-100.0); MEAN PLATELET VOLUME 8.3 fL (7.4-11.0); MONOCYTES # (AUTO) 1.1 x10^3/uL (0.3-0.8); MONOCYTES % (AUTO) 9.4 % (0.0-13.0); NEUTROPHILS # (AUTO) 7.6 x10^3/uL (2.2-4.8); NEUTROPHILS % (AUTO) 63.1 % (42.0-75.0); PLATELET COUNT 326 X10^3/uL (150.0-450.0); RED CELL DISTRIBUTION WIDTH 20.1 % (11.6-16.5)
--- NOTE | 2019-12-05 06:21 | RAD ---
HISTORYDyspnea and shortness of breath.STUDYCHEST, 1 VIEWCOMPARISONChest radiograph dated December 03, 2019FINDINGSThe trachea is midline. The cardiac silhouette is unremarkable. There are central interstitial densities with hazy ground-glass changes seen within the midlung zones and lower lobes which can be seen with infection or mild edema. Please correlate medically. The upper lungs are clear without focal infiltrate or effusion. The bony thorax is unremarkable.IMPRESSIONCentral interstitial densities with hazy ground-glass changes seen within the midlung zones and lower lobes which can be seen with infection or mild edema. Please correlate medically. No other cardiopulmonary abnormality/changes are observed.Electronically signed by: WILLEM VALLES III (Dec 05, 2019 06:20:23)
[2019-12-05 06:34] LABS: ANISOCYTOSIS 1+; HYPOCHROMASIA SLIGHT; PLATELET MORPHOLOGY COMMENT NORMAL (NORMAL)
[2019-12-05 06:39] LABS: ALANINE AMINOTRANSFERASE 17 Units/L (12-78); ALKALINE PHOSPHATASE 83 Units/L (46-116); ASPARTATE AMINO TRANSFERASE 10 Units/L (15-37); BLOOD UREA NITROGEN 16 mg/dL (7-18); CALCIUM 8.4 mg/dL (8.5-10.1); CARBON DIOXIDE 34.4 mmol/L (21-32); CHLORIDE 103 mmol/L (98-107); COR CA(FOR HYPOALB) 9.2 mg/dL (8.5-10.1); COR NA(FOR HYPERGLY) 142 mmol/L (136-145); CREATININE 0.94 mg/dL (0.55-1.02); SODIUM 142 mmol/L (136-145); eGFR NON BLACK RACES > 60 (>60)
[2019-12-05] MEDS ORDERED: K-DUR TAB 20 MEQ PO ONE (07:34)
[2019-12-05] MEDS ORDERED: POTASSIUM CHL 40 MEQ/NS 0.45% 500 ML IV PRN (08:10)
[2019-12-05] MEDS ORDERED: KLOR-CON PO PRN (08:10)
[2019-12-05] MEDS ORDERED: MICRO K EXTEN CAP 10 MEQ PO PRN (08:10)
[2019-12-05] MEDS ORDERED: K-DUR TAB 20 MEQ PO PRN (08:10)
[2019-12-05] MEDS ORDERED: POTASSIUM CHL 60 MEQ/NS 0.45% 500 ML IV PRN (08:10)
[2019-12-05] MEDS ORDERED: K-RIDER 10 MEQ/NS 100 ML 10 MEQ/100 ML BAG IV PRN (08:10)
[2019-12-05] MEDS ORDERED: POTASSIUM CHLORIDE LIQ 20 MEQ UDC PO PRN (08:10)
[2019-12-05] MEDS: LEVAQUIN PREMIX IV 500 MG 500 MG/100 ML BAG IV SCH (08:14)
[2019-12-05] MEDS: PULMICORT NEB TX 0.5 MG NEB SCH ×2 (08:31→20:55)
[2019-12-05] MEDS: NS 1000 ML 1,000 ML IV SCH (09:22)
[2019-12-05] MEDS: FORTAZ or TAZICEF VIAL INJ 1 G in NS 100 ML IV + SPIKE MINIBAG* 100 ML IV SCH ×4 (11:55→21:57)
[2019-12-05] MEDS: NORCO 10/325 TAB PO PRN (14:30)
--- NOTE | 2019-12-05 19:18 | PCM.PROG ---
Progress Note - Progress Note for Day of Date of Exam: 12/04/19 - Subjective Subjective: IS BEING TREATED FOR COPD EXACERBATION AND ACUTE BRONCHITIS. TODAY, SHE IS ALERT AND ORIENTED, LYING IN BED ON MORNING ROUNDS. SHE CONTINUES WITH COMPLAINTS OF COUGH AND SHORTNESS OF BREATH. ON EXAMINATION, HEART IS REGULAR IN RATE AND RHYTHM. BILATERAL LUNGS ARE NOTED WITH SCATTERED WHEEZING AND DIMINISHED LUNG SOUNDS THROUGHOUT. ABDOMEN IS ROUND, SOFT, AND NON-TENDER WITH NORMAL BOWEL SOUNDS NOTED IN ALL QUADRANTS. HER VITALS THIS MORNING ARE: 98.0-100-24-93%NC-144/81. LABS WERE OBTAINED. ABNORMAL LAB VALUES INCLUDE THE FOLLOWING: GLUCOSE 183, AST 10, TOTAL PROTEIN 9.3. BLOOD AND SPUTUM CULTURES ARE PENDING. SHE IS CURRENTLY RECEIVING LEVAQUIN 500MG IV DAILY, NS AT 50 ML/HR, RESPIRATORY TX, AND SUPPLEMENTAL OXYGEN. WE WILL CONTINUE WITH CURRENT PLAN OF CARE TODAY. OTHERWISE, WE WILL FOLLOW UP WITH AM LABS AND CONTINUE TO MONITOR. - Past Medical Family Social History Past Med/Fam/Surg Hx: No changes since H&P Allergies: Allergies ibuprofen [From Motrin] Allergy (Verified 08/24/19 12:11) meloxicam Allergy (Verified 08/24/19 12:11) - Review of Systems ROS: No change since H&P - Vital Signs and I&O's Vital Signs: Temperature 97.7 F Pulse Rate [Left Brachial] 102 Pulse Rate [Right Brachial] 86 Pulse Rate 88 Respiratory Rate 24 Blood Pressure [Left Arm] 152/74 Blood Pressure [Right Calf] 128/67 Blood Pressure [Right Arm] 150/90 O2 Sat by Pulse Oximetry 97 Intake and Output: Intake & Output 12/03/19 12/04/19 12/05/19 12/06/19 11:59 11:59 11:59 11:59 Intake Total 2150 / 2150 4121 / 4121 1440 / 1440 Balance 2150 / 2150 4121 / 4121 1440 / 1440 - Physical Exam Oriented: Normal Eyes: Normal Ear: Normal Nose: Normal Throat: Normal, Dry Respiratory: Generalized, Diminished, Wheezes Cardiovascular: Tachycardia, Edema : Normal Auscultation: Bowel Sounds: Normal Tenderness: Normal Skin: Normal Musculoskeletal: Right, Left, Knee, Back:Lumbar Psychiatric: Anxiety Affect: Anxious Speech Pattern: Clear, Appropriate - Laboratory and Diagnostics Result Diagrams: 12/05/19 05:15 12/05/19 05:15 Labs: 12/03/19 14:50 Blood Blood Culture - Preliminary 12/03/19 14:20 Blood Blood Culture - Preliminary 12/03/19 17:14 Sputum - Expectorated Sputum Sputum Culture - Final 12/03/19 17:14 Sputum - Expectorated Sputum - Final Laboratory WBC 12.0 X10^3/uL (3.6-10.0) H 12/05/19 05:15 RBC 4.80 X10^6/uL (3.5-5.4) 12/05/19 05:15 Hgb 11.6 g/dL (12.0-16.0) L 12/05/19 05:15 Hct 37.5 % (36.0-47.0) 12/05/19 05:15 MCV 78.1 fL (80.0-100.0) L 12/05/19 05:15 MCH 24.1 pg (27.0-34.0) L 12/05/19 05:15 MCHC 30.9 g/dL (33.0-35.0) L 12/05/19 05:15 RDW 20.1 % (11.6-16.5) H 12/05/19 05:15 Plt Count 326 X10^3/uL (150.0-450.0) 12/05/19 05:15 Plt Count Comment Adequate (ADEQUATE) 12/05/19 05:15 MPV 8.3 fL (7.4-11.0) 12/05/19 05:15 Neut % (Auto) 63.1 % (42.0-75.0) 12/05/19 05:15 Lymph % (Auto) 27.0 % (21.0-51.0) 12/05/19 05:15 [place] % (Auto) 9.4 % (0.0-13.0) 12/05/19 05:15 Eos % (Auto) 0.1 % (0.9-2.9) L 12/05/19 05:15 Baso % (Auto) 0.4 % (0.2-1.0) 12/05/19 05:15 Neut # (Auto) 7.6 x10^3/uL (2.2-4.8) H 12/05/19 05:15 Lymph # (Auto) 3.2 X10^3/uL (1.3-2.9) H 12/05/19 05:15 [place] # (Auto) 1.1 x10^3/uL (0.3-0.8) H 12/05/19 05:15 Eos # (Auto) 0.0 x10^3/uL (0.0-0.2) 12/05/19 05:15 Baso # (Auto) 0.0 X10^3/uL (0.0-0.1) 12/05/19 05:15 Absolute Nucleated RBC 0.0 /100WBC 12/05/19 05:15 Giant Platelets Few 12/04/19 05:55 Plt Morphology Comment Normal (NORMAL) 12/05/19 05:15 RBC Morphology Abnormal (NORMAL) A 12/05/19 05:15 Hypochromasia Slight A 12/05/19 05:15 Anisocytosis 1+ A 12/05/19 05:15 Sample Site Rbra 12/03/19 16:05 ABG pH 7.430 (7.35-7.45) 12/03/19 16:05 ABG pCO2 54.0 mmHg (35.0-45.0) H* 12/03/19 16:05 ABG pO2 56.0 mmHg (80.0-100.0) L 12/03/19 16:05 ABG HCO3 35.8 mmol/L (22-26) H* 12/03/19 16:05 ABG O2 Saturation 90.0 % (90-100) 12/03/19 16:05 ABG Base Excess 9.7 mmol/L (-2.0-2.0) H 12/03/19 16:05 Adam Test N/a 12/03/19 16:05 A-a Gradient 26.0 mmHg 12/03/19 16:05 FiO2 21.0 12/03/19 16:05 Blood Gas Comments Pt adonay well eb 12/03/19 16:05 Sodium 142 mmol/L (136-145) 12/05/19 05:15 Corrected Sodium 142 mmol/L (136-145) 12/05/19 05:15 Potassium 3.7 mmol/L (3.5-5.1) 12/05/19 05:15 Chloride 103 mmol/L (98-107) 12/05/19 05:15 Carbon Dioxide 34.4 mmol/L (21-32) H 12/05/19 05:15 BUN 16 mg/dL (7-18) 12/05/19 05:15 Creatinine 0.94 mg/dL (0.55-1.02) 12/05/19 05:15 Est GFR (MDRD) Af Amer > 60 (>60) 12/05/19 05:15 Est GFR (MDRD) Non-Af > 60 (>60) 12/05/19 05:15 Glucose 118 mg/dL (65-99) H 12/05/19 05:15 Calcium 8.4 mg/dL (8.5-10.1) L 12/05/19 05:15 Corrected Calcium 9.2 mg/dL (8.5-10.1) 12/05/19 05:15 Magnesium 2.0 mg/dL (1.7-2.9) 12/05/19 05:15 Total Bilirubin 0.20 mg/dL (0.2-1.0) 12/05/19 05:15 AST 10 Units/L (15-37) L 12/05/19 05:15 ALT 17 Units/L (12-78) 12/05/19 05:15 Alkaline Phosphatase 83 Units/L (46-116) 12/05/19 05:15 Total Protein 8.0 g/dL (6.4-8.2) 12/05/19 05:15 Albumin 3.0 g/dL (3.4-5.0) L 12/05/19 05:15 Globulin 5.0 g/dL (2.5-4.5) H 12/05/19 05:15 Albumin/Globulin Ratio 0.6 Ratio (1.1-2.1) L 12/05/19 05:15 Specimen Type Clean catch urine 12/03/19 20:02 Urine Color Yellow (YELLOW) 12/03/19 20:02 Urine Appearance Clear (CLEAR) 12/03/19 20:02 Urine pH 5.0 (5.0 - 8.0) 12/03/19 20:02 Ur Specific [place] 1.010 (1.000-1.030) 12/03/19 20:02 Urine Protein Negative (NEGATIVE) 12/03/19 20:02 Urine Glucose (UA) Negative (NEGATIVE) 12/03/19 20: Urine Ketones Negative (NEGATIVE) 12/03/19 20: Urine Occult Blood 5+ (NEGATIVE) 12/03/19 20: Urine Nitrite Negative (NEGATIVE) 12/03/19 20: Urine Bilirubin Negative (NEGATIVE) 12/03/19 20: Urine Urobilinogen Normal (NORMAL) 12/03/19 20:02 Ur Leukocyte Esterase Negative (NEGATIVE) 12/03/19 20: Urine RBC 3-5 /HPF (0-3) A 12/03/19 20: Urine WBC 0-2 /HPF (0-5) 12/03/19 20: Ur Squamous Epith Cells Few /HPF (NEGATIVE) 12/03/19 20: Urine Bacteria Negative /HPF (NEGATIVE) 12/03/19 20: Ur Culture Indicated? No/not indicated 12/03/19 20:02 - Plan (1) Acute dyspnea Status: Acute (2) COPD (chronic obstructive pulmonary disease) with acute bronchitis Status: Acute Plan: IV LEVAQUIN, RESPIRATORY TX,. IV LASIX WITH POTASSIUM REPLACEMENT, STRICT I&O. CARDIAC MONITORING. BP MONITORING, SUPPLEMENTAL O2
[2019-12-05] MEDS: COLACE CAP 100 MG PO SCH (20:37)
--- NOTE | 2019-12-05 22:26 | PCM.PROG ---
Progress Note - Progress Note for Day of Date of Exam: 12/05/19 - Subjective Subjective: IS BEING TREATED FOR COPD EXACERBATION AND ACUTE BRONCHITIS. TODAY, SHE IS ALERT AND ORIENTED, LYING IN BED ON MORNING ROUNDS. SHE CONTINUES WITH COMPLAINTS OF COUGH AND SHORTNESS OF BREATH. ON EXAMINATION, HEART IS REGULAR IN RATE AND RHYTHM. BILATERAL LUNGS ARE NOTED WITH SCATTERED WHEEZING AND DIMINISHED LUNG SOUNDS THROUGHOUT. ABDOMEN IS ROUND, SOFT, AND NON-TENDER WITH NORMAL BOWEL SOUNDS NOTED IN ALL QUADRANTS. HER VITALS THIS MORNING ARE: 98.0-86-24-92%-157/93. LABS WERE OBTAINED. ABNORMAL LAB VALUES INCLUDE THE FOLLOWING: WBC 12.0, HGB 11.6, CARBON DIOXIDE 34.4, GLUCOSE 118, CALCIUM 8.4, AST 10, ALBUMIN 3.0. BLOOD AND SPUTUM CULTURES ARE PENDING. A CHEST XRAY WAS OBTIANED TODAY AND REVEALED: entral interstitial densities with hazy ground- glass changes seen within the midlung zones and lower lobes which can be seen with infection or mild edema. No other cardiopulmonary abnormality/changes are observed. SHE IS CURRENTLY RECEIVING LEVAQUIN 500MG IV DAILY, NS AT 50 ML/HR, RESPIRATORY TX, AND SUPPLEMENTAL OXYGEN. WE WILL CONTINUE WITH CURRENT PLAN OF CARE TODAY AND ADD FORTAZ 1G IV Q8H. OTHERWISE, WE WILL FOLLOW UP WITH AM LABS AND CONTINUE TO MONITOR. - Past Medical Family Social History Past Med/Fam/Surg Hx: No changes since H&P Allergies: Allergies ibuprofen [From Motrin] Allergy (Verified 08/24/19 12:11) meloxicam Allergy (Verified 08/24/19 12:11) - Review of Systems ROS: No change since H&P - Vital Signs and I&O's Vital Signs: Temperature 97.7 F Pulse Rate [Left Brachial] 102 Pulse Rate [Right Brachial] 86 Pulse Rate 100 Respiratory Rate 24 Blood Pressure [Left Arm] 152/74 Blood Pressure [Right Calf] 128/67 Blood Pressure [Right Arm] 150/90 O2 Sat by Pulse Oximetry 93 Intake and Output: Intake & Output 12/03/19 12/04/19 12/05/19 12/06/19 11:59 11:59 11:59 11:59 Intake Total 2150 / 2150 4121 / 4121 1440 / 1440 Balance 2150 / 2150 4121 / 4121 1440 / 1440 - Physical Exam Oriented: Normal Eyes: Normal Ear: Normal Nose: Normal Throat: Normal, Dry Respiratory: Generalized, Diminished, Wheezes Cardiovascular: Tachycardia, Edema : Normal Auscultation: Bowel Sounds: Normal Tenderness: Normal Skin: Normal Musculoskeletal: Right, Left, Knee, Back:Lumbar Psychiatric: Anxiety Affect: Anxious Speech Pattern: Clear, Appropriate - Laboratory and Diagnostics Result Diagrams: 12/05/19 05:15 12/05/19 05:15 Labs: 12/03/19 14:50 Blood Blood Culture - Preliminary 12/03/19 14:20 Blood Blood Culture - Preliminary 12/03/19 17:14 Sputum - Expectorated Sputum Sputum Culture - Final 12/03/19 17:14 Sputum - Expectorated Sputum - Final Laboratory WBC 12.0 X10^3/uL (3.6-10.0) H 12/05/19 05:15 RBC 4.80 X10^6/uL (3.5-5.4) 12/05/19 05:15 Hgb 11.6 g/dL (12.0-16.0) L 12/05/19 05:15 Hct 37.5 % (36.0-47.0) 12/05/19 05:15 MCV 78.1 fL (80.0-100.0) L 12/05/19 05:15 MCH 24.1 pg (27.0-34.0) L 12/05/19 05:15 MCHC 30.9 g/dL (33.0-35.0) L 12/05/19 05:15 RDW 20.1 % (11.6-16.5) H 12/05/19 05:15 Plt Count 326 X10^3/uL (150.0-450.0) 12/05/19 05:15 Plt Count Comment Adequate (ADEQUATE) 12/05/19 05:15 MPV 8.3 fL (7.4-11.0) 12/05/19 05:15 Neut % (Auto) 63.1 % (42.0-75.0) 12/05/19 05:15 Lymph % (Auto) 27.0 % (21.0-51.0) 12/05/19 05:15 [place] % (Auto) 9.4 % (0.0-13.0) 12/05/19 05:15 Eos % (Auto) 0.1 % (0.9-2.9) L 12/05/19 05:15 Baso % (Auto) 0.4 % (0.2-1.0) 12/05/19 05:15 Neut # (Auto) 7.6 x10^3/uL (2.2-4.8) H 12/05/19 05:15 Lymph # (Auto) 3.2 X10^3/uL (1.3-2.9) H 12/05/19 05:15 [place] # (Auto) 1.1 x10^3/uL (0.3-0.8) H 12/05/19 05:15 Eos # (Auto) 0.0 x10^3/uL (0.0-0.2) 12/05/19 05:15 Baso # (Auto) 0.0 X10^3/uL (0.0-0.1) 12/05/19 05:15 Absolute Nucleated RBC 0.0 /100WBC 12/05/19 05:15 Giant Platelets Few 12/04/19 05:55 Plt Morphology Comment Normal (NORMAL) 12/05/19 05:15 RBC Morphology Abnormal (NORMAL) A 12/05/19 05:15 Hypochromasia Slight A 12/05/19 05:15 Anisocytosis 1+ A 12/05/19 05:15 Sample Site Rbra 12/03/19 16:05 ABG pH 7.430 (7.35-7.45) 12/03/19 16:05 ABG pCO2 54.0 mmHg (35.0-45.0) H* 12/03/19 16:05 ABG pO2 56.0 mmHg (80.0-100.0) L 12/03/19 16:05 ABG HCO3 35.8 mmol/L (22-26) H* 12/03/19 16:05 ABG O2 Saturation 90.0 % (90-100) 12/03/19 16:05 ABG Base Excess 9.7 mmol/L (-2.0-2.0) H 12/03/19 16:05 Adam Test N/a 12/03/19 16:05 A-a Gradient 26.0 mmHg 12/03/19 16:05 FiO2 21.0 12/03/19 16:05 Blood Gas Comments Pt adonay well eb 12/03/19 16:05 Sodium 142 mmol/L (136-145) 12/05/19 05:15 Corrected Sodium 142 mmol/L (136-145) 12/05/19 05:15 Potassium 3.7 mmol/L (3.5-5.1) 12/05/19 05:15 Chloride 103 mmol/L (98-107) 12/05/19 05:15 Carbon Dioxide 34.4 mmol/L (21-32) H 12/05/19 05:15 BUN 16 mg/dL (7-18) 12/05/19 05:15 Creatinine 0.94 mg/dL (0.55-1.02) 12/05/19 05:15 Est GFR (MDRD) Af Amer > 60 (>60) 12/05/19 05:15 Est GFR (MDRD) Non-Af > 60 (>60) 12/05/19 05:15 Glucose 118 mg/dL (65-99) H 12/05/19 05:15 Calcium 8.4 mg/dL (8.5-10.1) L 12/05/19 05:15 Corrected Calcium 9.2 mg/dL (8.5-10.1) 12/05/19 05:15 Magnesium 2.0 mg/dL (1.7-2.9) 12/05/19 05:15 Total Bilirubin 0.20 mg/dL (0.2-1.0) 12/05/19 05:15 AST 10 Units/L (15-37) L 12/05/19 05:15 ALT 17 Units/L (12-78) 12/05/19 05:15 Alkaline Phosphatase 83 Units/L (46-116) 12/05/19 05:15 Total Protein 8.0 g/dL (6.4-8.2) 12/05/19 05:15 Albumin 3.0 g/dL (3.4-5.0) L 12/05/19 05:15 Globulin 5.0 g/dL (2.5-4.5) H 12/05/19 05:15 Albumin/Globulin Ratio 0.6 Ratio (1.1-2.1) L 12/05/19 05:15 Specimen Type Clean catch urine 12/03/19 20:02 Urine Color Yellow (YELLOW) 12/03/19 20:02 Urine Appearance Clear (CLEAR) 12/03/19 20: Urine pH 5.0 (5.0 - 8.0) 12/03/19 20: Ur Specific [place] 1.010 (1.000-1.030) 12/03/19 20: Urine Protein Negative (NEGATIVE) 12/03/19 20: Urine Glucose (UA) Negative (NEGATIVE) 12/03/19 20: Urine Ketones Negative (NEGATIVE) 12/03/19 20: Urine Occult Blood 5+ (NEGATIVE) 12/03/19 20: Urine Nitrite Negative (NEGATIVE) 12/03/19 20: Urine Bilirubin Negative (NEGATIVE) 12/03/19 20: Urine Urobilinogen Normal (NORMAL) 12/03/19 20: Ur Leukocyte Esterase Negative (NEGATIVE) 12/03/19 20: Urine RBC 3-5 /HPF (0-3) A 12/03/19 20: Urine WBC 0-2 /HPF (0-5) 12/03/19 20: Ur Squamous Epith Cells Few /HPF (NEGATIVE) 12/03/19 20: Urine Bacteria Negative /HPF (NEGATIVE) 12/03/19 20: Ur Culture Indicated? No/not indicated 12/03/19 20: - Plan (1) Acute dyspnea Status: Acute (2) COPD (chronic obstructive pulmonary disease) with acute bronchitis Status: Acute Plan: IV LEVAQUIN, IV FORTAZ, RESPIRATORY TX,. IV LASIX WITH POTASSIUM REPLACEMENT, STRICT I&O. CARDIAC MONITORING. BP MONITORING, SUPPLEMENTAL O2
[2019-12-06] MEDS: NS 1000 ML 1,000 ML IV SCH ×3 (00:24→14:22)
[2019-12-06] MEDS: XOPENEX 1.25 MG/3 ML NEBULE NEB SCH ×4 (00:32→17:23)
[2019-12-06] MEDS: FORTAZ or TAZICEF VIAL INJ 1 G in NS 100 ML IV + SPIKE MINIBAG* 100 ML IV SCH ×3 (06:21→21:15)
[2019-12-06 06:55] LABS: BASOPHILS % (AUTO) 0.5 % (0.2-1.0); EOSINOPHILS # (AUTO) 0.1 x10^3/uL (0.0-0.2); EOSINOPHILS % (AUTO) 0.8 % (0.9-2.9); HEMATOCRIT 37.9 % (36.0-47.0); HEMOGLOBIN 11.7 g/dL (12.0-16.0); LYMPHOCYTES # (AUTO) 3.7 X10^3/uL (1.3-2.9); LYMPHOCYTES % (AUTO) 43.5 % (21.0-51.0); MEAN CORPUSCULAR HEMOGLOBIN 24.2 pg (27.0-34.0); MEAN CORPUSCULAR HGB CONC 30.9 g/dL (33.0-35.0); MEAN CORPUSCULAR VOLUME 78.4 fL (80.0-100.0); MEAN PLATELET VOLUME 8.3 fL (7.4-11.0); MONOCYTES # (AUTO) 0.7 x10^3/uL (0.3-0.8); MONOCYTES % (AUTO) 8.9 % (0.0-13.0); NEUTROPHILS # (AUTO) 3.9 x10^3/uL (2.2-4.8); NEUTROPHILS % (AUTO) 46.3 % (42.0-75.0); PLATELET COUNT 288 X10^3/uL (150.0-450.0); RED BLOOD COUNT 4.83 X10^6/uL (3.5-5.4); RED CELL DISTRIBUTION WIDTH 19.8 % (11.6-16.5); WHITE BLOOD COUNT 8.4 X10^3/uL (3.6-10.0)
[2019-12-06 07:18] LABS: ALANINE AMINOTRANSFERASE 17 Units/L (12-78); ALBUMIN 2.8 g/dL (3.4-5.0); ALKALINE PHOSPHATASE 79 Units/L (46-116); ASPARTATE AMINO TRANSFERASE 10 Units/L (15-37); BLOOD UREA NITROGEN 21 mg/dL (7-18); CARBON DIOXIDE 33.8 mmol/L (21-32); CHLORIDE 102 mmol/L (98-107); CREATININE 0.97 mg/dL (0.55-1.02); SODIUM 140 mmol/L (136-145); TOTAL PROTEIN 7.4 g/dL (6.4-8.2); eGFR NON BLACK RACES > 60 (>60)
--- NOTE | 2019-12-06 07:46 | RAD ---
HISTORYCOUGH, CONGESTION, SOB COPD exacerbation acute bronchitisSTUDYCHEST, 1 VIEWCOMPARISONChest film December 05, 2019. An older film August 30, 2019.FINDINGSFilm is limited by patient body habitus. The trachea is midline. The cardiac silhouette is mildly enlarged and larger than it was in August of 2019 there is mild central vascular congestion increased compared to the prior film of August 2019.. The lungs are clear without focal infiltrate or effusion. The bony thorax is unremarkable.IMPRESSIONMild cardiomegaly and mild vascular congestion compared to older films of August 30, 2019 but no acute infiltrates or effusions to suggest failure or pneumonia.Electronically signed by: JOSE LUIS BRANNON (Dec 06, 2019 07:44:58)
[2019-12-06] MEDS: LEVAQUIN PREMIX IV 500 MG 500 MG/100 ML BAG IV SCH (08:06)
[2019-12-06 08:13] LABS: PLATELET MORPHOLOGY COMMENT NORMAL (NORMAL)
[2019-12-06] MEDS: PULMICORT NEB TX 0.5 MG NEB SCH ×2 (08:36→20:10)
[2019-12-06] MEDS: K-DUR TAB 20 MEQ PO SCH ×2 (09:51→21:15)
[2019-12-06] MEDS: LASIX IVP SCH ×2 (09:52→21:15)
[2019-12-06] MEDS: LOVENOX INJ 40 MG SYR SC SCH (09:52)
[2019-12-06] MEDS: COLACE CAP 100 MG PO SCH (21:14)
[2019-12-07] MEDS: XOPENEX 1.25 MG/3 ML NEBULE NEB SCH ×3 (00:41→14:29)
[2019-12-07] MEDS: NS 1000 ML 1,000 ML IV SCH (01:51)
[2019-12-07] MEDS: FORTAZ or TAZICEF VIAL INJ 1 G in NS 100 ML IV + SPIKE MINIBAG* 100 ML IV SCH ×2 (05:34→12:59)
[2019-12-07 06:20] LABS: BASOPHILS # (AUTO) 0.1 X10^3/uL (0.0-0.1); BASOPHILS % (AUTO) 0.6 % (0.2-1.0); EOSINOPHILS # (AUTO) 0.1 x10^3/uL (0.0-0.2); EOSINOPHILS % (AUTO) 0.9 % (0.9-2.9); HEMATOCRIT 36.5 % (36.0-47.0); HEMOGLOBIN 11.5 g/dL (12.0-16.0); LYMPHOCYTES # (AUTO) 3.7 X10^3/uL (1.3-2.9); LYMPHOCYTES % (AUTO) 37.6 % (21.0-51.0); MEAN CORPUSCULAR HEMOGLOBIN 24.6 pg (27.0-34.0); MEAN CORPUSCULAR HGB CONC 31.4 g/dL (33.0-35.0); MEAN CORPUSCULAR VOLUME 78.2 fL (80.0-100.0); MEAN PLATELET VOLUME 8.1 fL (7.4-11.0); MONOCYTES # (AUTO) 0.8 x10^3/uL (0.3-0.8); MONOCYTES % (AUTO) 7.9 % (0.0-13.0); NEUTROPHILS # (AUTO) 5.3 x10^3/uL (2.2-4.8); PLATELET COUNT 308 X10^3/uL (150.0-450.0); RED BLOOD COUNT 4.67 X10^6/uL (3.5-5.4); RED CELL DISTRIBUTION WIDTH 19.6 % (11.6-16.5); WHITE BLOOD COUNT 9.9 X10^3/uL (3.6-10.0)
--- NOTE | 2019-12-07 06:24 | RAD ---
HISTORYShortness of breathSTUDYCHEST, 1 VIEWCOMPARISONFebruary 2019FINDINGSThe heart is now within normal limits in size. Mild pulmonary venous congestion is present. No interstitial edema, alveolar edema, alveolar infiltrates or pleural effusions are identified. Bony thorax is unremarkable.IMPRESSIONMild pulmonary venous congestionNo infiltratesElectronically signed by: CLOVIS ARMIJO (Dec 07, 2019 06:23:24)
[2019-12-07 06:35] LABS: ALANINE AMINOTRANSFERASE 16 Units/L (12-78); ALBUMIN 2.9 g/dL (3.4-5.0); ALKALINE PHOSPHATASE 80 Units/L (46-116); ASPARTATE AMINO TRANSFERASE 10 Units/L (15-37); BLOOD UREA NITROGEN 16 mg/dL (7-18); CALCIUM 7.8 mg/dL (8.5-10.1); CARBON DIOXIDE 33.4 mmol/L (21-32); CHLORIDE 99 mmol/L (98-107); COR CA(FOR HYPOALB) 8.7 mg/dL (8.5-10.1); COR NA(FOR HYPERGLY) 139 mmol/L (136-145); CREATININE 0.89 mg/dL (0.55-1.02); SODIUM 138 mmol/L (136-145); TOTAL PROTEIN 7.5 g/dL (6.4-8.2); eGFR NON BLACK RACES > 60 (>60)
[2019-12-07 06:52] LABS: PLATELET MORPHOLOGY COMMENT NORMAL (NORMAL)
[2019-12-07] MEDS: PULMICORT NEB TX 0.5 MG NEB SCH (08:45)
[2019-12-07] MEDS: LOVENOX INJ 40 MG SYR SC SCH (09:32)
[2019-12-07] MEDS: LEVAQUIN PREMIX IV 500 MG 500 MG/100 ML BAG IV SCH (09:32)
[2019-12-07] MEDS: K-DUR TAB 20 MEQ PO SCH (09:33)
[2019-12-07] MEDS: LASIX IVP SCH (09:43)
--- NOTE | 2019-12-07 11:05 | US ---
HISTORYVAGINAL BLEEDINGSTUDYTransvaginal ultrasound and transabdominal images of the pelvisCOMPARISONNoneFINDINGSThe uterus measures 11.96 x 4.8 x 6.53 cm. The endometrium measures 6.1 mm thickness on transabdominal imaging and measured up to a cm on transvaginal images. No focal uterine mass is demonstrated. The endometrium is echogenic.The ovaries are not visualized. There is no free fluid.IMPRESSIONThickened endometrium. Nonvisualization of ovaries.Electronically signed by: MARIAH LAL (Dec 07, 2019 11:03:31)
[2019-12-07 11:55] LABS: ABG BASE EXCESS 12.2 mmol/L (-2.0-2.0)
[2019-12-07 11:57] LABS: ABG HCO3 37.8 mmol/L (22-26)
[2019-12-07 11:58] LABS: ABG ALLEN TEST POS
[2019-12-07 12:07] LABS: FREE T4 (FREE THYROXINE) 1.06 ng/dL (0.76-1.46); TSH (3RD GENERATION) 2.522 uIU/mL (0.358-3.74)
[2019-12-07 16:19] VITALS: BP 140/91
== END 2019-12-07 17:25 | disposition home or self-care (01) | DRG 192 ==
LOC: MED/SURG 11:14
PROVIDERS: ADMIT Internal Medicine; ATTEND Internal Medicine
DX: E78.49 Other hyperlipidemia; J20.8 Acute bronchitis due to other specified organisms; I11.0 Hypertensive heart disease with heart failure; R06.2 Wheezing; I50.9 Heart failure, unspecified; K21.9 Gastro-esophageal reflux disease without esophagitis; M19.90 Unspecified osteoarthritis, unspecified site; I25.10 Atherosclerotic heart disease of native coronary artery without angina pectoris; J44.1 Chronic obstructive pulmonary disease with (acute) exacerbation; J44.0 Chronic obstructive pulmonary disease with (acute) lower respiratory infection
CPT/HCPCS: 36415; 36600; 71010; 71020; 71045; 71046; 76830; 80053; 80061; 81001; 82607; 82670; 82728; 82746; 82803; 83540; 83735; 84144; 84439; 84443; 84466; 85025; 87040; 87070; 87205; 94640; 94760; A4222; J0713; J1650; J1940; J1956; J2930; J7030; J7050; J7626